=== PATIENT | female | born 2000 | race Caucasian/White ===

== ENCOUNTER 2023-08-18 17:37 | Emergency (ER) | payer OTHER, SELFPAY ==
[2023-08-18 17:41] VITALS: BP 106/64; PULSE 77; RESP 18; TEMP 36.5; O2SAT 98; BMI 20.8
[2023-08-18 18:28] VITALS: BP 98/60; PULSE 72; RESP 18; TEMP 36.7; O2SAT 98; BMI 19.4
--- NOTE | 2023-08-18 18:55 | ED_ITS ---
Documented by User: CAMILO Bahena 08/18/23 21:05 HPI - Abdominal Pain General Chief Complaint: Abdominal Pain Stated Complaint: flank, back and leg pain Time Seen by Provider: 08/18/23 18:44 Source: patient Mode of arrival: walk-in History of Present Illness HPI narrative: patient is a 23-year-old female presents the emergency department for continued pain in the right lateral abdomen, right hip radiating into the right leg. Patient states pain has been present for several weeks. She states for the last two days she has had nausea and vomiting. She states she was seen at the [facility] emergency department two days ago and they did a CT scan, x-rays and gave her morphine. She states the told her in the emergency department that everything was normal and she does not know what is causing her symptoms are how to fix it. She states pain is significantly worse with movement. She had no mechanism of injury or trauma. She has not been taking any medications at home. She is unsure if she may be . Related Data Home Medications Medication Instructions Recorded Confirmed No Known Home Medications 08/18/23 08/18/23 Previous Rx's Medication Instructions Recorded docusate sodium 100 mg capsule 100 mg PO BID #14 caps 08/18/23 (Colace) methocarbamol 750 mg tablet 750 mg PO TID PRN pain #20 tabs 08/18/23 naproxen sodium 550 mg tablet 550 mg PO BID PRN pain #10 tabs 08/18/23 Allergies Allergy/AdvReac Type Severity Reaction Status Date / Time lamictal Allergy Severe Hives Uncoded 08/18/23 17:49 Review of Systems ROS Constitutional Denies: fever or chills Ears, nose, mouth, and throat Denies: throat pain or neck pain Respiratory Denies: shortness of breath Gastrointestinal Reports: abdominal pain, nausea and vomiting; Denies: diarrhea Genitourinary Denies: painful urination Musculoskeletal Reports: back pain and extremity pain Integumentary/Breast Denies: rash Neurological Denies: headache Hematologic/Lymphatic Denies: easy bruising PFSH PFSH Social History Smoking status: Current every day smoker Exam Narrative Exam Narrative: Gen.: Awake, alert, in no distress Head: Normocephalic, atraumatic ENT: Moist mucous membranes Respiratory: No respiratory distress Gastrointestinal: Abdomen is soft, mildly tender in the right lateral and mid abdomen, no McBurney's point tenderness. No guarding or rebound Extremities: Moves extremities equally, no injuries noted; tenderness of the right posterior hip and pain with flexion of the right hip. No bony point tenderness of the posterior T-spine or L-spine. No obvious deformity. No rotation of the right leg. No decrease to sensation of the medial thighs. Normal dorsiflexion and plantarflexion. Psych: Normal mood and affect Neuro: No focal neuro deficit Skin: Warm, dry, intact Constitutional Vital Signs, click to edit/add: Last Vital Signs Temp 98.1 F 08/18/23 18:28 Pulse 72 08/18/23 21:26 Resp 18 08/18/23 18:28 BP 104/61 08/18/23 21:26 Pulse Ox 98 08/18/23 21:26 O2 Del Method Room Air 08/18/23 17:41 Course Vital Signs Vital signs: Vital Signs Temperature 97.7 F 08/18/23 17:41 Pulse Rate 77 08/18/23 17:41 Respiratory Rate 18 08/18/23 17:41 Blood Pressure 106/64 08/18/23 17:41 Pulse Oximetry 98 08/18/23 17:41 Oxygen Delivery Method Room Air 08/18/23 17:41 Temperature 98.1 F 08/18/23 18:28 Pulse Rate 72 08/18/23 21:26 Respiratory Rate 18 08/18/23 18:28 Blood Pressure 104/61 08/18/23 21:26 Pulse Oximetry 98 08/18/23 21:26 Oxygen Delivery Method Room Air 08/18/23 17:41 MDM - Abdominal Pain MDM Narrative Medical decision making narrative: labs including LFTs and test are within normal limits. Patient was sent for x-rays of the hip and pelvis. She had chest x-ray and CT scan of the abdomen and pelvis with IV contrast on 08/15/23. This showed a normal appendix and no other acute abnormalities. Chest x-ray was also negative. X-rays this evening are unremarkable, patient medicated for musculoskeletal pain. Her hip x-rays and pelvis x-ray due to show a suggestion of constipation although this was not commented on by the radiologist. Suspected her right-sided abdominal pain for several weeks may be caused by constipation. Patient will be placed on NSAIDs, muscle relaxants for hip and leg pain as well as stool softeners for constipation. Follow-up PCP and return to the Emergency Room if symptoms change or worsen patient reported feeling anxious at time of discharge, she was given 0.5 mg IV Ativan with improvement and continues to rest comfortably in the Emergency Room. Medical Records Attestation: I reviewed the patient's medical records. Lab Data Attestation: I reviewed the patient's lab results. Labs: Lab Results 08/18/23 08/18/23 Range/Units 18:35 19:00 WBC 5.5 (4.0-11.0) 10^3/uL RBC 4.23 (4.20-5.40) 10^6/uL Hgb 12.7 (12.0-16.0) g/dL Hct 37.7 (36.0-48.0) % MCV 89.1 (81.0-99.0) fL MCH 30.0 (26.7-34.0) pg MCHC 33.7 (29.9-35.2) g/dL RDW 12.1 (11.0-15.0) % Plt Count 268 (150-450) 10^3/uL MPV 9.1 L (9.5-13.5) fL Neut % (Auto) 59.7 (43.0-75.0) % Lymph % (Auto) 32.0 (20.5-60.0) % [place] % (Auto) 6.2 (1.7-12.0) % Eos % (Auto) 1.5 (0.9-7.0) % Baso % (Auto) 0.4 (0.2-2.0) % Neut # (Auto) 3.3 (1.4-6.5) 10^3/uL Lymph # (Auto) 1.8 (1.2-3.8) 10^3/uL [place] # (Auto) 0.3 (0.3-0.8) 10^3/uL Eos # (Auto) 0.1 (0.0-0.7) 10^3/uL Baso # (Auto) 0.0 (0.0-0.1) 10^3/uL Abs Immat Gran (auto) 0.01 (0.00-0.03) 10^3/uL Imm/Tot Granulo (auto) 0.2 (0.0-0.5) % Sodium 141 (136-145) mmol/L Potassium 3.9 (3.5-5.1) mmol/L Chloride 106 (98-107) mmol/L Carbon Dioxide 29.4 (21.0-32.0) mmol/L Anion Gap 9.5 BUN 12.0 (7.0-18.0) mg/dL Creatinine 0.81 (0.55-1.02) mg/dL Est GFR ( Amer) >60 (>=60) Est GFR (Non-Af Amer) >60 (>=60) BUN/Creatinine Ratio 14.8 Glucose 81 (74-106) mg/dL Calcium 8.7 (8.5-10.1) mg/dL Total Bilirubin 0.4 (0.2-1.0) mg/dL AST 14 L (15-37) U/L ALT 25 (14-59) U/L Alkaline Phosphatase 99 (46-116) U/L Total Protein 7.1 (6.4-8.2) g/dL Albumin 4.1 (3.4-5.0) g/dL Globulin 3.0 g/dL Albumin/Globulin Ratio 1.4 Serum HCG, Qual Negative (NEGATIVE) Urine Color Lt. yellow (YELLOW) Urine Clarity Clear (CLEAR) Urine pH 7.5 (5.0-9.0) Ur Specific [place] 1.010 (1.005-1.025) Urine Protein Negative (NEG/TRACE) mg/dL Urine Glucose (UA) Negative (NEGATIVE) mg/dL Urine Ketones Negative (NEGATIVE) mg/dL Urine Occult Blood Negative (NEGATIVE) Urine Nitrite Negative (NEGATIVE) Urine Bilirubin Negative (NEGATIVE) Urine Urobilinogen 0.2 (0.2-1.0) EU/dL Ur Leukocyte Esterase Trace A (NEGATIVE) Urine RBC 0-2 (0-2) #/HPF Urine WBC 0-2 A (NONE SEEN) #/HPF Ur Squamous Epith Cells Many A (NONE/RARE) #/LPF Urine Crystals None seen (None Seen) #/HPF Urine Bacteria None seen (NONE SEEN) #/HPF Urine Casts None seen (NONE SEEN) #/LPF Urine Mucus None seen (NONE SEEN) Ur Culture Indicated? No Imaging Data XR pelvis: Attestation: I have reviewed the pertinent imaging results. Radiologist's impression: Procedure: XR hip RT 2V w/ pelvis EXAM: XR hip RT 2V w/ pelvis HISTORY: Acute right hip and flank pain COMPARISON: None. TECHNIQUE: 3 views FINDINGS: No osseous lesion, fracture, dislocation or subluxation. Joint spaces are normal. No visualized effusion. No visualized soft tissue edema. IMPRESSION: Normal x-rays Electronically authenticated by: BRIAN DURÁN Date: 08/18/2023 20:36 Discharge Plan Discharge Chief Complaint: Abdominal Pain Clinical Impression: Acute pain of right hip, Abdominal pain Patient Disposition: Home, Self-Care Time of Disposition Decision: 20:54 Condition: Good Prescriptions / Home Meds: New methocarbamol 750 mg tablet 750 mg PO TID PRN (Reason: pain) Qty: 20 0RF naproxen sodium 550 mg tablet 550 mg PO BID PRN (Reason: pain) Qty: 10 0RF docusate sodium [Colace] 100 mg capsule 100 mg PO BID Qty: 14 0RF No Action No Known Home Medications Instructions: Abdominal Pain (ED), Hip Pain (ED) Stand Alone Forms: Portal Instructions Referrals: Physician,Non-Staff, [Primary Care Provider] - 1 week Discharge Date/Time: 08/18/23 21:37 Documented by User: Tobi Stone MD 08/25/23 07:44 HPI - Abdominal Pain General Chief Complaint: Abdominal Pain Stated Complaint: flank, back and leg pain Time Seen by Provider: 08/18/23 18:44 Related Data Home Medications Medication Instructions Recorded Confirmed No Known Home Medications 08/18/23 08/18/23 Previous Rx's Medication Instructions Recorded docusate sodium 100 mg capsule 100 mg PO BID #14 caps 08/18/23 (Colace) methocarbamol 750 mg tablet 750 mg PO TID PRN pain #20 tabs 08/18/23 naproxen sodium 550 mg tablet 550 mg PO BID PRN pain #10 tabs 08/18/23 Allergies Allergy/AdvReac Type Severity Reaction Status Date / Time lamictal Allergy Severe Hives Uncoded 08/18/23 17:49 PFSH PFSH Social History Smoking status: Current every day smoker Exam Constitutional Vital Signs, click to edit/add: Last Vital Signs Temp 98.1 F 08/18/23 18:28 Pulse 72 08/18/23 21:26 Resp 18 08/18/23 18:28 BP 104/61 08/18/23 21:26 Pulse Ox 98 08/18/23 21:26 O2 Del Method Room Air 08/18/23 17:41 Course Vital Signs Vital signs: Vital Signs Temperature 97.7 F 08/18/23 17:41 Pulse Rate 77 08/18/23 17:41 Respiratory Rate 18 08/18/23 17:41 Blood Pressure 106/64 08/18/23 17:41 Pulse Oximetry 98 08/18/23 17:41 Oxygen Delivery Method Room Air 08/18/23 17:41 Temperature 98.1 F 08/18/23 18:28 Pulse Rate 72 08/18/23 21:26 Respiratory Rate 18 08/18/23 18:28 Blood Pressure 104/61 08/18/23 21:26 Pulse Oximetry 98 08/18/23 21:26 Oxygen Delivery Method Room Air 08/18/23 17:41 MDM - Abdominal Pain MDM Narrative Medical decision making narrative: labs including LFTs and test are within normal limits. Patient was sent for x-rays of the hip and pelvis. She had chest x-ray and CT scan of the abdomen and pelvis with IV contrast on 08/15/23. This showed a normal appendix and no other acute abnormalities. Chest x-ray was also negative. X-rays this evening are unremarkable, patient medicated for musculoskeletal pain. Her hip x-rays and pelvis x-ray due to show a suggestion of constipation although this was not commented on by the radiologist. Suspected her right-sided abdominal pain for several weeks may be caused by constipation. Patient will be placed on NSAIDs, muscle relaxants for hip and leg pain as well as stool softeners for constipation. Follow-up PCP and return to the Emergency Room if symptoms change or worsen patient reported feeling anxious at time of discharge, she was given 0.5 mg IV Ativan with improvement and continues to rest comfortably in the Emergency Room. I, Dr Stone, have reviewed the above progress note and course of action in the ER; agree with the above. I have personally seen and evaluated this patient, gone over history and physical, and discussed disposition and treatment plan with the patient. Lab Data Labs: Lab Results 08/18/23 08/18/23 Range/Units 18:35 19:00 WBC 5.5 (4.0-11.0) 10^3/uL RBC 4.23 (4.20-5.40) 10^6/uL Hgb 12.7 (12.0-16.0) g/dL Hct 37.7 (36.0-48.0) % MCV 89.1 (81.0-99.0) fL MCH 30.0 (26.7-34.0) pg MCHC 33.7 (29.9-35.2) g/dL RDW 12.1 (11.0-15.0) % Plt Count 268 (150-450) 10^3/uL MPV 9.1 L (9.5-13.5) fL Neut % (Auto) 59.7 (43.0-75.0) % Lymph % (Auto) 32.0 (20.5-60.0) % [place] % (Auto) 6.2 (1.7-12.0) % Eos % (Auto) 1.5 (0.9-7.0) % Baso % (Auto) 0.4 (0.2-2.0) % Neut # (Auto) 3.3 (1.4-6.5) 10^3/uL Lymph # (Auto) 1.8 (1.2-3.8) 10^3/uL [place] # (Auto) 0.3 (0.3-0.8) 10^3/uL Eos # (Auto) 0.1 (0.0-0.7) 10^3/uL Baso # (Auto) 0.0 (0.0-0.1) 10^3/uL Abs Immat Gran (auto) 0.01 (0.00-0.03) 10^3/uL Imm/Tot Granulo (auto) 0.2 (0.0-0.5) % Sodium 141 (136-145) mmol/L Potassium 3.9 (3.5-5.1) mmol/L Chloride 106 (98-107) mmol/L Carbon Dioxide 29.4 (21.0-32.0) mmol/L Anion Gap 9.5 BUN 12.0 (7.0-18.0) mg/dL Creatinine 0.81 (0.55-1.02) mg/dL Est GFR ( Amer) >60 (>=60) Est GFR (Non-Af Amer) >60 (>=60) BUN/Creatinine Ratio 14.8 Glucose 81 (74-106) mg/dL Calcium 8.7 (8.5-10.1) mg/dL Total Bilirubin 0.4 (0.2-1.0) mg/dL AST 14 L (15-37) U/L ALT 25 (14-59) U/L Alkaline Phosphatase 99 (46-116) U/L Total Protein 7.1 (6.4-8.2) g/dL Albumin 4.1 (3.4-5.0) g/dL Globulin 3.0 g/dL Albumin/Globulin Ratio 1.4 Serum HCG, Qual Negative (NEGATIVE) Urine Color Lt. yellow (YELLOW) Urine Clarity Clear (CLEAR) Urine pH 7.5 (5.0-9.0) Ur Specific [place] 1.010 (1.005-1.025) Urine Protein Negative (NEG/TRACE) mg/dL Urine Glucose (UA) Negative (NEGATIVE) mg/dL Urine Ketones Negative (NEGATIVE) mg/dL Urine Occult Blood Negative (NEGATIVE) Urine Nitrite Negative (NEGATIVE) Urine Bilirubin Negative (NEGATIVE) Urine Urobilinogen 0.2 (0.2-1.0) EU/dL Ur Leukocyte Esterase Trace A (NEGATIVE) Urine RBC 0-2 (0-2) #/HPF Urine WBC 0-2 A (NONE SEEN) #/HPF Ur Squamous Epith Cells Many A (NONE/RARE) #/LPF Urine Crystals None seen (None Seen) #/HPF Urine Bacteria None seen (NONE SEEN) #/HPF Urine Casts None seen (NONE SEEN) #/LPF Urine Mucus None seen (NONE SEEN) Ur Culture Indicated? No Discharge Plan Discharge Chief Complaint: Abdominal Pain Clinical Impression: Acute pain of right hip, Abdominal pain Patient Disposition: Home, Self-Care Time of Disposition Decision: 20:54 Condition: Good Prescriptions / Home Meds: New methocarbamol 750 mg tablet 750 mg PO TID PRN (Reason: pain) Qty: 20 0RF naproxen sodium 550 mg tablet 550 mg PO BID PRN (Reason: pain) Qty: 10 0RF docusate sodium [Colace] 100 mg capsule 100 mg PO BID Qty: 14 0RF No Action No Known Home Medications Instructions: Abdominal Pain (ED), Hip Pain (ED) Stand Alone Forms: Portal Instructions Referrals: Physician,Non-Staff, MD [Primary Care Provider] - 1 week Discharge Date/Time: 08/18/23 21:37
[2023-08-18] MEDS: ONDANSETRON PF 4 MG/2 ML VIAL IV (19:07)
[2023-08-18] MEDS: 0.9 % SODIUM CHLORIDE 1,000 ML 1000 ML IV (19:07)
--- NOTE | 2023-08-18 19:23 | XR_ITS ---
[address] [address] Patient Name: JOHN SQUIRES MRN: [id number] date: 2000 Sex: F Assigned Patient Location: ER Current Patient Location: ED.MAIN Accession/Order Number: [id number] Exam Date: 08/18/2023 20:05 Report Date: 08/18/2023 20:36 At the request of: NICOLAS WILDER Procedure: XR hip RT 2V w/ pelvis EXAM: XR hip RT 2V w/ pelvis HISTORY: Acute right hip and flank pain COMPARISON: None. TECHNIQUE: 3 views FINDINGS: No osseous lesion, fracture, dislocation or subluxation. Joint spaces are normal. No visualized effusion. No visualized soft tissue edema. XR/XR hip RT 2V w/ pelvis IMPRESSION: Normal x-rays Electronically authenticated by: BRIAN DURÁN Date: 08/18/2023 20:36
[2023-08-18 19:33] LABS: Bilirubin Urine NEGATIVE (NEGATIVE); Blood Urine NEGATIVE (NEGATIVE); Clarity Urine CLEAR (CLEAR); Color Urine LT. YELLOW (YELLOW); Glucose Urine UA NEGATIVE (NEGATIVE); Ketones Urine NEGATIVE (NEGATIVE); Leukocyte Esterase Urine TRACE (NEGATIVE); Nitrite Urine NEGATIVE (NEGATIVE); Protein Urine NEGATIVE (NEG/TRACE); Urobilinogen Urine 0.2 EU/dL (0.2-1.0); pH Urine 7.5 (5.0-9.0)
[2023-08-18 19:34] LABS: Basophils Percent Auto 0.4 % (0.2-2.0); Eosinophils Absolute Auto 0.1 10^3/uL (0.0-0.7); Eosinophils Percent Auto 1.5 % (0.9-7.0); Hematocrit 37.7 % (36.0-48.0); Hemoglobin 12.7 g/dL (12.0-16.0); Immature Granulocytes Abs Auto 0.01 10^3/uL (0.00-0.03); Immature Granulocytes Pct Auto 0.2 % (0.0-0.5); Lymphocytes Absolute Auto 1.8 10^3/uL (1.2-3.8); Mean Corpuscular HGB Conc 33.7 g/dL (29.9-35.2); Mean Corpuscular Volume 89.1 fL (81.0-99.0); Mean Platelet Volume 9.1 fL (9.5-13.5); Monocytes Absolute Auto 0.3 10^3/uL (0.3-0.8); Monocytes Percent Auto 6.2 % (1.7-12.0); Neutrophils Absolute Auto 3.3 10^3/uL (1.4-6.5); Neutrophils Percent Auto 59.7 % (43.0-75.0); Platelet Count 268 10^3/uL (150-450); Red Blood Count 4.23 10^6/uL (4.20-5.40); Red Cell Distribution Width 12.1 % (11.0-15.0); White Blood Count 5.5 10^3/uL (4.0-11.0)
--- NOTE | 2023-08-18 19:41 | PC.NURSE ---
this rn taking over patient care at this time. pt states that she has had pain starting under right ribs that goes down to hip and down right leg for the last month. patient states that she went to [facility] 2 days ago and had blood work, ct scan, and x-ray done. pt was given morphine for pain but was told all her results were normal. patient states that for the last 2 days she has had n/v. denies injury. unsure if .
[2023-08-18 19:45] LABS: Urine Microscopic Indicated YES
[2023-08-18 19:45] LABS: HCG Qualitative NEGATIVE (NEGATIVE)
[2023-08-18 19:52] LABS: Bacteria Urine NONE SEEN #/HPF (NONE SEEN); Cast Seen? NONE SEEN #/LPF (NONE SEEN); Crystals Seen? None Seen #/HPF (None Seen); Mucus Urine NONE SEEN (NONE SEEN); RBC Urine 0-2 #/HPF (0-2); Squamous Epithelial Cell Urine MANY #/LPF (NONE/RARE); Urine Culture Indicated NO; WBC Urine 0-2 #/HPF (NONE SEEN)
[2023-08-18 20:03] LABS: Anion Gap 9.5; Carbon Dioxide 29.4 mmol/L (21.0-32.0); Chloride 106 mmol/L (98-107); Glucose 81 mg/dL (74-106); Potassium 3.9 mmol/L (3.5-5.1); Sodium 141 mmol/L (136-145)
[2023-08-18 20:04] LABS: Alanine Aminotransferase 25 U/L (14-59); Albumin Globulin Ratio 1.4; Albumin Level 4.1 g/dL (3.4-5.0); Alkaline Phosphatase 99 U/L (46-116); Aspartate Amino Transferase 14 U/L (15-37); Bilirubin Total 0.4 mg/dL (0.2-1.0); Calcium 8.7 mg/dL (8.5-10.1); Estimated GFR (African America >60 (>=60); Estimated GFR (Non-African Ame >60 (>=60); Total Protein 7.1 g/dL (6.4-8.2)
[2023-08-18 20:06] LABS: BUN Creatinine Ratio 14.8
[2023-08-18 20:35] VITALS: BP 92/62; PULSE 68; O2SAT 99
[2023-08-18] MEDS: ORPHENADRINE 60 MG/ 2 ML VIAL IV (20:37)
[2023-08-18] MEDS: KETOROLAC TROMETHAMINE 30 MG/ML VIAL IVP (20:37)
[2023-08-18] MEDS: LORAZEPAM 2 MG/ML 1 ML VIAL 0.5 MG IV (21:09)
[2023-08-18 21:26] VITALS: BP 104/61; PULSE 72; O2SAT 98
== END 2023-08-18 21:37 | disposition home or self-care (01) ==
PROVIDERS: Emergency Medicine; Physician Assistant; Emergency Provider Internal Medicine
DX: R10.9 Unspecified abdominal pain (principal); M25.551 Pain in right hip; F17.210 Nicotine dependence, cigarettes, uncomplicated
CPT/HCPCS: 36415; 73502; 80053; 81001; 84703; 85025; 96361; 96374; 96375; 99285

== ENCOUNTER 2025-04-06 04:14 | Emergency (ER) | payer OTHER, SELFPAY ==
[2025-04-06 04:11] VITALS: BP 103/73; PULSE 77; TEMP 37.1; O2SAT 98; BMI 20.1
--- NOTE | 2025-04-06 04:22 | ECG_ITS ---
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 Measurements Intervals [place] Rate: 83 P: 61 [place]: 142 QRS: 69 QRSD: 96 T: 40 QT: 384 QTc: 424 Interpretive Statements 1100 Sinus rhythm 9110 normal ECG Compared to ECG 06/12/2020 21:55:18 Sinus tachycardia no longer present ST (T wave) deviation no longer present Electronically Signed On 04-06-2025 21:43:33 EDT by GUICHO RUIZ M.D.
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
[2025-04-06 05:06] LABS: Basophils Percent Auto 0.3 % (0.2-2.0); Eosinophils Absolute Auto 0.1 10^3/uL (0.0-0.7); Hematocrit 40.6 % (36.0-48.0); Hemoglobin 13.9 g/dL (12.0-16.0); Immature Granulocytes Abs Auto 0.03 10^3/uL (0.00-0.03); Immature Granulocytes Pct Auto 0.3 % (0.0-0.5); Lymphocytes Absolute Auto 3.9 10^3/uL (1.2-3.8); Lymphocytes Percent Auto 37.5 % (20.5-60.0); Mean Corpuscular HGB Conc 34.2 g/dL (29.9-35.2); Mean Corpuscular Hemoglobin 30.9 pg (26.7-34.0); Mean Corpuscular Volume 90.2 fL (81.0-99.0); Monocytes Absolute Auto 0.5 10^3/uL (0.3-0.8); Monocytes Percent Auto 4.7 % (1.7-12.0); Neutrophils Absolute Auto 5.9 10^3/uL (1.4-6.5); Neutrophils Percent Auto 56.2 % (43.0-75.0); Platelet Count 291 10^3/uL (150-450); White Blood Count 10.5 10^3/uL (4.0-11.0)
--- NOTE | 2025-04-06 05:10 | PC.NURSE ---
Initially, pt did deny suicidal thoughts, plan, and ideation. After the MD in to speak with her, pt confided that she is indeed feeling suicidal. She denies feeling homicidal, denies having a plan. She states that she would just kill herself suddenly if she truly means to. She reports a hx of suicidal thoughts and ideation, and was hospitalized approximately 2 times for this with the last time in 2022. She states a hx of psychotic depression and anxiety for which she claims to have sought no further treatment for over 2 years. She denies taking psych meds and other meds. States that she drank 4 Ledesma Lights tonight, and believes ETOH consumption makes the auditory hallucinations less. Breath does smell of ETOH.
[2025-04-06 05:14] LABS: HCG Qualitative Urine* NEGATIVE (NEGATIVE); Internal Control Within Normal Limits
[2025-04-06 05:15] LABS: Bilirubin Urine NEGATIVE (NEGATIVE); Clarity Urine CLEAR (CLEAR); Color Urine YELLOW (YELLOW); Glucose Urine UA NEGATIVE (NEGATIVE); Ketones Urine 15 mg/dL (NEGATIVE); Protein Urine NEGATIVE (NEG/TRACE)
[2025-04-06 05:16] LABS: Blood Urine NEGATIVE (NEGATIVE); Leukocyte Esterase Urine NEGATIVE (NEGATIVE); Nitrite Urine NEGATIVE (NEGATIVE); Urobilinogen Urine 0.2 EU/dL (0.2-1.0)
[2025-04-06 05:17] LABS: Amphetamine Screen Urine NEGATIVE (NEGATIVE); Barbiturates Screen Urine NEGATIVE (NEGATIVE); Benzodiazepines Screen Urine NEGATIVE (NEGATIVE); Buprenorphine Screen Urine NEGATIVE (NEGATIVE); Cannabinoid Screen Urine NEGATIVE (NEGATIVE); Cocaine Screen Urine NEGATIVE (NEGATIVE); Methadone Screen Urine NEGATIVE (NEGATIVE); Methamphetamines Screen Urine NEGATIVE (NEGATIVE); Opiate Screen Urine NEGATIVE (NEGATIVE); Oxycodone Screen Urine NEGATIVE (NEGATIVE); Phencyclidine Screen Urine NEGATIVE (NEGATIVE); Tricyclic Antidepressant Urine NEGATIVE (NEGATIVE)
--- NOTE | 2025-04-06 05:18 | PC.NURSE ---
Pt states that she's been feeling anxious and hearing voices for about a month and reports that she is in the process of getting . States that she has 2 small children at home and they are with her mother at this time.
[2025-04-06 05:19] LABS: Bacteria Urine NONE SEEN #/HPF (NONE SEEN); Mucus Urine NONE SEEN (NONE SEEN); RBC Urine NONE SEEN #/HPF (0-2); WBC Urine NONE SEEN #/HPF (NONE SEEN)
[2025-04-06 05:20] LABS: Cast Seen? NONE SEEN #/LPF (NONE SEEN); Crystals Seen? None Seen #/HPF (None Seen); Squamous Epithelial Cell Urine RARE #/LPF (NONE/RARE); Urine Culture Indicated NO
[2025-04-06 05:34] LABS: Alanine Aminotransferase 24 U/L (14-59); Albumin Globulin Ratio 1.2; Albumin Level 4.1 g/dL (3.4-5.0); Alkaline Phosphatase 78 U/L (46-116); Anion Gap 14.3; Aspartate Amino Transferase 13 U/L (15-37); BUN Creatinine Ratio 18.5; Bilirubin Total 0.2 mg/dL (0.2-1.0); Calcium 8.9 mg/dL (8.5-10.1); Carbon Dioxide 26.6 mmol/L (21.0-32.0); Chloride 107 mmol/L (98-107); Estimated GFR (African America >60 (>=60 mL/min/1.73m^2); Estimated GFR (Non-African Ame >60 (>=60 mL/min/1.73m^2); Globulin 3.3 g/dL; Glucose 89 mg/dL (74-106); Potassium 3.9 mmol/L (3.5-5.1); Sodium 144 mmol/L (136-145); Total Protein 7.4 g/dL (6.4-8.2)
[2025-04-06 05:37] LABS: Acetaminophen <2.0 ug/mL (10.0-30.0)
[2025-04-06 06:17] VITALS: BP 102/60; PULSE 74; O2SAT 98
[2025-04-06 06:29] LABS: Ethanol 169 mg/dL
--- NOTE | 2025-04-06 07:31 | PC.NURSE ---
Spoke with Nia from [facility] and she will have counselor call and speak with patient when she is available. Face sheet, EKG, and lab worked faxed to [facility].
--- NOTE | 2025-04-06 08:43 | PC.NURSE ---
Patient speaking with [facility] counselor via teleconference at this time.
[2025-04-06 10:06] LABS: Ethanol 22 mg/dL
--- NOTE | 2025-04-06 11:00 | PC.NURSE ---
[facility] here at this time for transport.
== END 2025-04-06 11:04 ==
PROVIDERS: Emergency Medicine; Emergency Provider Emergency Medicine
DX: F23 Brief psychotic disorder (principal); F32.9 Major depressive disorder, single episode, unspecified; F17.200 Nicotine dependence, unspecified, uncomplicated; F41.9 Anxiety disorder, unspecified; F32.A Depression, unspecified
CPT/HCPCS: 36415; 80053; 80179; 80307; 80320; 80329; 81001; 84703; 85025; 93005; 99285

== ENCOUNTER 2025-09-13 13:08 | Outpatient (RCR) | payer OTHER, SELFPAY ==
--- OUTSIDE RECORDS SUMMARY | 2025-08-31 09:38 | XMS_ITS | Encounter Summary ---
Author Organization [facility] tem Address [facility] [address] [place] [address] Care Team Providers Care Receiving Teller Name Role Phone No Pcp, No Pcp Primary Care Provider Unavailabl e Reason for Visit * ReasonCommentsAbdominal Pain Encounter Details DateTypeDepartmentCare Team (Latest Contact Info)Hfywpzbnyem94/15/2025 9:38 AM EDT - 08/31/2025 2:08 [address] [facility] [address] [place] [phone] ObKeshav ponce S, DO [address] [phone] Abnormal ultrasound (Primary Dx); Right sided abdominal pain; Intrauterine Discharge Disposition: Home Social History Tobacco UseTypesPacks/DayYears UsedDateSmoking Tobacco: Every DayCigarettes Smokeless Tobacco: NeverAlcohol UseStandard Drinks/WeekCommentsNot Currently0 (1 standard drink = 0.6 oz pure alcohol)occasionallyChildcareAnswerDate Recorded SqnnljpylKrulbys75/12/2019EmploymentAnswerDate RecordedEmploymentUnknown 04/28/2019Hunger ScreeningAnswerDate RecordedWithin the past 12 months we worried whether our food would run out before we got money to buy more.Never True08/31/2025Within the past 12 months the food we bought just didn't last and we didn't have money to get more.Never True08/31/2025Purpose - LifeAnswerDate RecordedPurpose and direction in pjneMpqsncd00/08/2021CommentsYesSex and Gender InformationValueDate RecordedSex Assigned at BirthNot on fileLegal Sex Zafenx5906/22/2015 11:54 AM EDTGender IdentityNot on fileSexual OrientationNot on filedocumented as of this encounter Last Filed Vital Signs Vital SignReadingTime TakenCommentsBlood Yjwujzxw98/4410 2:05 PM EDT Sprkz124208/31/2025 2:05 PM PFFLbnzsjjzaiu76.6 ??C (97.9 ??F)08/31/2025 9:41 AM EDTRespiratory Twpl4334 2:05 PM EDTOxygen Yzjkjuxjsg932%08/31/2025 2:05 PM EDTInhaled Oxygen Concentration--Nvcmop96.6 kg (105 lb)08/31/2025 9:41 AM EDT Htjnrg413.8 cm (4' 9 )08/31/2025 9:41 AM EDTBody Mass Index22.7208/31/2025 9:41 AM EDTdocumented in this encounter Discharge Instructions * Discharge Instructions* Keshav Mena DO - 08/31/2025 2:01 PM EDT Be sure to proceed to an outpatient lab to have your serum hormone redrawn. Be sure to reach out to * Attachments The following attachments cannot be sent through Care Everywhere. * Medication (Norwegian) documented in this encounter Medications at Time of Discharge MedicationSigDispense QuantityRefillsLast FilledStart DateEnd Date acetaminophen (TYLENOL EXTRA STRENGTH) 500 mg tablet Take 1 tablet (500 mg total) by mouth every 6 (six) hours as needed for pain. 30 tablet 04/09/2022 doxylamine-pyridoxine, vit B6, (DICLEGIS) 10-10 mg tablet,delayed release (DR/EC) Take 2 tablets by mouth nightly. 21 tablet 07/31/2022 ondansetron ODT (ZOFRAN ODT) 4 mg disintegrating tablet Dissolve 1 tablet (4 mg total) on tongue every 8 (eight) hours as needed for nausea for up to 10 doses. 10 tablet 07/31/2022 ondansetron ODT (ZOFRAN ODT) 4 mg disintegrating tablet Dissolve 1 tablet (4 mg total) on tongue 3 (three) times a day as needed for nausea for up to 3 doses. 3 tablet 12/21/2024 prenat.vits,jluis,rew-awkq-hlxku ( VITAMIN) tablet Take by mouth.documented as of this encounter ED Notes * Siena Trujillo RN - 08/31/2025 9:40 AM EDT 3 days has been having stomach pains on the LRQ and it goes into back and down legs. Had a positivepregnancy test at home. documented in this encounter Plan of Treatment NameTypePriorityAssociated DiagnosesOrder SchedulehCG, quantitative, LabSTAT Abnormal ultrasound Expected: 09/03/2025, Expires: 08/31/2026documented as of this encounter Procedures Procedure NamePriorityDate/TimeAssociated DiagnosisCommentsUS ABDOMEN LMTDSTAT 08/31/2025 1:13 PM EDT US PREG LESS THAN 14 WKS WITH QMZGIXLQPDNBBWMO71/15/2025 11:40 AM EDT REPEATED JPIJTVafbrqs55/15/2025 11:20 AM EDT CBC WITH AUTO XOARDQJCRDTGHIJP90/15/2025 11:20 AM EDT LJZBNMDZ03/15/2025 11:20 AM EDT PROTIME & JMFBNTW7008/31/2025 11:20 AM EDT TYPE AND HMGEQJJERN91/15/2025 11:20 AM EDT HCG-BETA, NQGFNNXLR84/15/2025 11:20 AM EDT LIPASESTAT Add-on08/31/2025 11:20 AM EDT LIVER PANELSTAT Add-on08/31/2025 11:20 AM EDT BASIC METABOLIC ATOTHLQWN85/15/2025 11:20 AM EDT POCT , URINE (NUCG)Sbmosbc4208/31/2025 10:56 AM EDT POCT NURSING URINE MACROSCOPIC QNYkjowec00/15/2025 10:55 AM EDT ER EXTRA URINE JLUMVCVOQV33/15/2025 10:53 AM EDT ER EXTRA URINE DKBBASFYALM99/15/2025 10:53 AM EDT ER EXTRA BIKZLVCZU46/15/2025 10:53 AM EDT documented in this encounter Results * Ultrasound abdomen limited (08/31/2025 1:13 PM EDT)Anatomical RegionLaterality ModalityBody, AbdomenUltrasoundSpecimen (Source)Anatomical Location / LateralityCollection Method / VolumeCollection TimeReceived Time08/31/2025 1:16 PM EDT Narrative 08/31/2025 1:19 PM EDT Abdominal ultrasound dated 08/31/2025 at 1:02 PM INDICATION: Right-sided abdominal pain, loss of appetite, . FINDINGS: No comparisons available. Visualized portions of the pancreas show no focal abnormalities. No acute abnormality seen in the liver. No intra or extrahepatic biliary dilatation, the common bile duct measures 6 mm. No. Subtle pericholecystic fluid, the gallbladder wall measures 1.3 mm. Patent main portal vein with hepatopedal flow. Ultrasound of the right lower quadrant revealed bowel gas without fluid collections, the appendix is not visualized. IMPRESSION: 1. The appendix is not visualized on ultrasound. 2. No free fluid seen in the abdomen. 3. No gallstones, pericholecystic fluid, or biliary dilatation. Finalized by Serene Hanks MD on 08/31/2025 1:19 PM Procedure Note Serene Hanks MD - 08/31/2025 Abdominal ultrasound dated 08/31/2025 at 1:02 PM INDICATION: Right-sided abdominal pain, loss of appetite, . FINDINGS: No comparisons available. Visualized portions of the pancreasshow no focal abnormalities. No acute abnormality seen in the liver. Nointra or extrahepatic biliary dilatation, the common bile duct measures 6mm. No. Subtle pericholecystic fluid, the gallbladder wall measures 1.3mm. Patent main portal vein with hepatopedal flow. Ultrasound of the right lowerquadrant revealed bowel gas without fluid collections, the appendix is notvisualized. IMPRESSION: 1. The appendix is not visualized on ultrasound. 2. No free fluid seen in the abdomen. 3. No gallstones, pericholecystic fluid, or biliary dilatation. Finalized by Serene Hanks MD on 08/31/2025 1:19 PM Authorizing ProviderResult TypeResult StatusBrchuckie Mena [facility] US ORDERABLES Final Result * Ultrasound less than 14 weeks with transvaginal (08/31/2025 11:40 AM EDT)Anatomical RegionLateralityModalityOB-GYNUltrasoundSpecimen (Source) Anatomical Location / LateralityCollection Method / VolumeCollection Time Received Time08/31/2025 11:52 AM EDT Narrative 08/31/2025 11:58 AM EDT History: Right lower quadrant pain.]. Assess for ectopic . Procedure: US PREG LESS THAN 14 WKS WITH TRANSVAGINAL Real-time suprapubic and transvaginal pelvic ultrasound performed without complication. Transvaginal technique employed to improve visualization of the adnexa. Findings: Suprapubic approach: Uterus and adnexa not optimally visualized. Transvaginal approach: Gestational sac shape appropriate, placenta difficult to localize due to age, amniotic fluid volumeappropriate for age Right ovary 23 x 20 x 23 mm Left ovary 23 x 17 x 12 mm Appropriate gestational sac. Yolk sac demonstrated measuring 3.7 mm. Brewer-rump 0.19 cm corresponding to a gestational age of less than 5 weeks heart rate is low at 88 bpm The uterus demonstrates appropriate size and echo pattern. The ovaries demonstrate appropriate size and echo pattern. There are no adnexal masses or free fluid. Impression: * ??Single live intrauterine gestation less than 5 weeks age. * ?? heart rate is low at 88 bpm. I recommend pelvic ultrasound in 7 days to more accurately determine gestational age and further characterize heart rate. Finalized by Mateusz Gomez MD on 08/31/2025 11:58 AM Procedure Note Mateusz Gomez MD - 08/31/2025 History: Right lower quadrant pain.]. Assess for ectopic . Procedure: US PREG LESS THAN 14 WKS WITH TRANSVAGINAL Real-time suprapubic and transvaginal pelvic ultrasound performed without complication. Transvaginal technique employed to improve visualization ofthe adnexa. Findings: Suprapubic approach: Uterus and adnexa not optimally visualized. Transvaginal approach: Gestational sac shape appropriate, placenta difficult to localize due toage, amniotic fluid volume appropriate for age Right ovary 23 x 20 x 23 mm Left ovary 23 x 17 x 12 mm Appropriate gestational sac. Yolk sac demonstrated measuring 3.7 mm.Brewer-rump 0.19 cm corresponding to a gestational age of less than 5weeks heart rate is low at 88 bpm The uterus demonstrates appropriate size and echo pattern. The ovaries demonstrate appropriate size and echo pattern. There are no adnexal masses or free fluid. Impression: * Single live intrauterine gestation less than 5 weeks age. * heart rate is low at 88 bpm. I recommend pelvic ultrasound in 7days to more accurately determine gestational age and further characterizefetal heart rate. Finalized by Mateusz Gomez MD on 08/31/2025 11:58 AM Authorizing ProviderResult TypeResult StatusBrian S Obrycki [facility] US ORDERABLES Final Result * Lipase (08/31/2025 11:20 AM EDT)ComponentValueRef RangeTest MethodAnalysis TimePerformed AtPathologist OmzjicuusQSMYTH9761 - 40 U/L1 1:23 PM EDT [facility] (Source)Anatomical Location / LateralityCollection Method / VolumeCollection TimeReceived TimeBloodVenous blood / UnknownVenipuncture / Oweidff9708/31/2025 11:20 AM EDT1 11:30 AM EDT Narrative Authorizing ProviderResult TypeResult StatusBrnemours children's hospital, [place] S Obryck DOLAB BLOOD ORDERABLESFinal ResultPerforming OrganizationAddressCity/State/ZIP CodePhone Number [address] [place] [address], * Liver panel (08/31/2025 11:20 AM EDT)ComponentValueRef RangeTest Method Analysis TimePerformed AtPathologist SignatureTOTAL PROTEIN7.56.0 - 8.0 g/dL 08/31/2025 1:23 PM EDTPZANESVILLE CITY HOSPITALALBUMIN4.63.2 - 5.3 g/dL08/31/2025 1:23 PM EDTPZANESVILLE CITY HOSPITALBILIRUBIN,TOTAL 0.80.3 - 1.2 mg/dL08/31/2025 1:23 PM [facility] ALKALINE PVVGEOHNTEG0438 - 130 U/L1 1:23 PM EDKETTERING HEALTH WASHINGTON TOWNSHIPAST16<=41 U/L1 1:23 PM EDTPZANESVILLE CITY HOSPITALALT17<=31 U/L1 1:23 PM [facility] BILIRUBIN,DIRECT0.1<=0.4 mg/dL08/31/2025 1:[address] [facility] HOSPITALpecimen (Source)Anatomical Location / LateralityCollection Method / VolumeCollection TimeReceived TimeBloodVenous blood / UnknownVenipuncture / Lrxjpse7708/31/2025 11:20 AM EDT1 11:30 AM EDT Narrative Authorizing ProviderResult TypeResult StatusBrian S Obrycki DOLAB BLOOD ORDERABLESFinal ResultPerforming OrganizationAddressCity/State/ZIP CodePhone Number [facility] [address] [place] [address] [place] [address], [place] * ABO Rh Repeat (08/31/2025 11:20 AM EDT)ComponentValueRef RangeTest Method Analysis TimePerformed AtPathologist OlissivakVYCV87/15/2025 12:36 PM EDTFRE KRYSTIAN - EFOXLQOSTKtwzkiuu64/15/2025 12:36 PM EDTFRE BB - AWASpecimen (Source) Anatomical Location / LateralityCollection Method / VolumeCollection Time Received TimeBloodVenous blood / UnknownVenipuncture / Hahrild1808/31/2025 11:20 AM EDT1 11:30 AM EDT Narrative Authorizing ProviderResult TypeResult StatusBrian S Obrycki DOBLOOD BANK TEST ORDERABLESFinal ResultPerforming OrganizationAddressCity/State/[facility] CodePhone Number OSWALDO BILLINGS [address] [address], [place] * HCG, Quantitative, (08/31/2025 11:20 AM EDT)ComponentValueRef Range Test MethodAnalysis TimePerformed AtPathologist SignatureSERUM B HCG,3RD I.S. 33,871mIU/mL08/31/2025 12:42 PM EDTPROMEDICA MERCY SAN [facility]UAN MEDICAL CENTERpecimen (Source)Anatomical Location / LateralityCollection Method / VolumeCollection TimeReceived TimeBloodVenous blood / UnknownVenipuncture / Jdooxpm8108/31/2025 11:20 AM EDT1 11:30 AM EDT Narrative [facility] - 08/31/2025 12:42 PM EDT WEEKS (SINCE LMP) MIU/mL 3 WEEKS ?5 - 50 4 WEEKS ?5 - 426 5 WEEKS ?18 - 7,340 6 WEEKS ?1,080 - 56,500 7-8 WEEKS ?7,650 - 229,000 9-12 WEEKS ? 25,700 - 288,000 13-16 WEEKS ?13,300 - 254,000 17-24 WEEKS ?4,060 - 165,400 25-40 WEEKS ?3,640 - 117,000 MALES AND NON- FEMALES - <5 MIU/mL This test has been FDA approved for use in only. ??Elevated levels are not necessarily diagnostic for trophoblastic or nontrophoblastic neoplasms. Authorizing ProviderResult TypeResult StatusKeshav Mena DOLAB BLOOD ORDERABLESFinal ResultPerforming OrganizationAddressty/[facility] CodePhone Number [facility] [address] [place] [address], [place] * Type and screen(includes indirect scooby) (08/31/2025 11:20 AM EDT)Component ValueRef RangeTest MethodAnalysis TimePerformed AtPathologist SignatureABOO 08/31/2025 12:21 PM EDTFRE BB - HMIJIVQXETzjqsimj14/15/2025 12:21 PM EDTFRE BB - WELLSKYAntibody OwzqyfMknnvvac88/15/2025 12:21 PM EDTFRE BB - WELLSKY Specimen (Source)Anatomical Location / LateralityCollection Method / Volume Collection TimeReceived TimeBloodVenous blood / UnknownVenipuncture / Unknown 08/31/2025 11:20 AM EDT1 11:30 AM EDT Narrative Authorizing ProviderResult TypeResult Tato Mena DOBLOOD BANK TEST ORDERABLESEdited Result - FinalPerforming OrganizationAddressty/State/ZIP Code Phone Number OSWALDO BILLINGS [address] [place] [address], [place] * APTT (08/31/2025 11:20 AM EDT)ComponentValueRef RangeTest MethodAnalysis Time Performed AtPathologist OurezasvkZRGN1448 - 37 sec08/31/2025 11:44 AM EDT [facility] (Source)Anatomical Location / LateralityCollection Method / VolumeCollection TimeReceived TimeBloodVenous blood / UnknownVenipuncture / Pyojivl4708/31/2025 11:20 AM EDT1 11:30 AM EDT Narrative Authorizing ProviderResult TypeResult StatusBrian S Obrycki DOLAB BLOOD ORDERABLESFinal ResultPerforming OrganizationAddressCity/State/ZIP CodePhone Number [address] [place] [address], [place] * Protime & INR (08/31/2025 11:20 AM EDT)ComponentValueRef RangeTest Method Analysis TimePerformed AtPathologist QxzruggxpVZVJOLQ95.19.8 - 13.2 sec 08/31/2025 11:44 AM EDKETTERING HEALTH WASHINGTON TOWNSHIPINR1.00.9 - 1.2 08/31/2025 11:44 AM EDW[facility] (Source) Anatomical Location / LateralityCollection Method / VolumeCollection Time Received TimeBloodVenous blood / UnknownVenipuncture / Ihwlpnw9408/31/2025 11:20 AM EDT1 11:30 AM EDT Narrative Authorizing ProviderResult TypeResult StatusBrian S Obrycki DOLAB BLOOD ORDERABLESFinal ResultPerforming OrganizationAddressty/State/ZIP CodePhone Number [address] [place] [address], [place] * (ABNORMAL) Basic Metabolic Panel (08/31/2025 11:20 AM EDT)ComponentValueRef RangeTest MethodAnalysis TimePerformed AtPathologist MtphuroxdKKHSOA164911 - 146 mmol/L1 12:07 PM EDTPZANESVILLE CITY HOSPITALPOTASSIUM 3.4(L)3.5 - 5.0 mmol/L1 12:07 PM EDTPZANESVILLE CITY HOSPITALCHLORIDE9998 - 109 mmol/L1 12:07 PM [facility]CARB[facility] BQGOPXO3894 - 32 mmol/L1 12:07 PM EDT [facility]ITALANION VGB985 - 15 mmol/L1 12:07 PM [facility]ICBLOOD UREA ZONJLEEF30 - 23 mg/dL 08/31/2025 12:07 PM [facility]ICCREATININE0.580.40 - 1.00 mg/dL08/31/2025 12:07 PM [facility]ICComment: METHOD TRACEABLE TO IDMS OOMLSMQOTNTQRYZ9048 - 99 mg/dL08/31/2025 12:07 PM EDT [facility] HOSPITALCALCIUM9.28.5 - 10.5 mg/dL08/31/2025 12:07 PM [facility]ICEGFR Non-Race Dependent>90>=60 ml/min/1.73sq.m1 12:07 PM [facility] Comment: eGFR not reported due to non-numeric value for Creatinine. Reported eGFR is based on the CKD-EPI 2020 equation that does not use a race coefficient. Specimen (Source)Anatomical Location / LateralityCollection Method / Volume Collection TimeReceived TimeBloodVenous blood / UnknownVenipuncture / Unknown 08/31/2025 11:20 AM EDT1 11:30 AM EDT Narrative Authorizing ProviderResult TypeResult StatusBrian Kingsley Mena [facility] BLOOD ORDERABLESFinal ResultPerforming OrganizationAddressCity/State/ZIP CodePhone Number [facility] [address] [place] [address], * CBC auto differential (08/31/2025 11:20 AM EDT)ComponentValueRef RangeTest MethodAnalysis TimePerformed AtPathologist SignatureWBC6.94 - 11 x10E9/L 08/31/2025 11:34 AM [facility]ICRBC Count4.303.8 - 5.2 X10E12/L1 11:34 AM [facility] Avnbwokgux31.111.7 - 15.5 g/dL08/31/2025 11:34 AM EDKETTERING HEALTH WASHINGTON TOWNSHIPHematocrit37.435 - 47 %08/31/2025 11:34 AM EDKETTERING HEALTH WASHINGTON TOWNSHIPMCV8780 - 100 fL08/31/2025 11:34 AM [facility]ICMCH30.427 - 34 pg08/31/2025 11:34 AM EDKETTERING HEALTH WASHINGTON TOWNSHIPMCHC34.932 - 36 g/dL08/31/2025 11:34 AM EDKETTERING HEALTH WASHINGTON TOWNSHIPRDW12.811.5 - 15 %08/31/2025 11:34 AM [facility]ICPlatelet Fpims301688 - 450 X10E9/L1 11:34 AM EDKETTERING HEALTH WASHINGTON TOWNSHIPMPV7.27 - 12 fL08/31/2025 11:34 AM EDT [facility]OS[facility]ITALNeutrophils %70.2%08/31/2025 11:34 AM EDT [facility]OS[facility]ITALLymphocytes %23.3%08/31/2025 11:34 AM EDT [facility]OSPITALMonocytes %5.0%08/31/2025 11:34 AM EDT [facility] HOSPITALEosinophils %1.2%08/31/2025 11:34 AM EDT [facility]ITALBasophils %0.3%08/31/2025 11:34 AM EDT [facility] HOS[facility]ITALNeutrophils Absolute (A)4.81.5 - 6.6 10*3/uL08/31/2025 11:34 AM EDTPZANESVILLE CITY HOSPITALLymphocytes Absolute1.61.0 - 3.5 10*3/uL08/31/2025 11:34 AM EDTPZANESVILLE CITY HOSPITALMonocytes Absolute0.30.0 - 0.9 10*3/uL08/31/2025 11:34 AM EDTPROMEDICA FREMONT [facility]IAL HOSPITALEosinophils Absolute0.10.0 - 0.4 10*3/uL08/31/2025 11:34 AM [facility]Basophils Absolute0.00.0 - 0.2 10*3/uL08/31/2025 11:34 AM [facility]ICDifferential TypeAUTOMATED HUOGVNIHFLDY82/15/2025 11:34 AM [facility] (Source)Anatomical Location / LateralityCollection Method / VolumeCollection TimeReceived TimeBloodVenous blood / UnknownVenipuncture / Onhketd8008/31/2025 11:20 AM EDT1 11:30 AM EDT Narrative Authorizing ProviderResult TypeResult Statuschuckie [facility]ann[facility] DOLAB BLOOD ORDERABLESFinal ResultPerforming OrganizationAddressCity/State/[facility] CodePhone Number [address] [place] [address], [place] * (ABNORMAL) POCT , urine (08/31/2025 10:56 AM EDT)ComponentValueRef RangeTest MethodAnalysis TimePerformed AtPathologist SignaturePOC Urine PregnancyPositive(A)Negative, Dhzjfwfhkfkha99/15/2025 10:58 AM [facility] (Source)Anatomical Location / Laterality Collection Method / VolumeCollection TimeReceived NucvLohru71/15/2025 10:56 AM EDT1 10:58 AM EDT Narrative Authorizing ProviderResult TypeResult [facility] HospitalKeshav Mena DOPOINT OF CARE TEST ORDERABLESFinal ResultPerforming OrganizationAddressty/State/ZIP CodePhone Number [address] [place] [address], [place] * (ABNORMAL) POCT Nursing Urine Macroscopic UA (08/31/2025 10:55 AM EDT) ComponentValueRef RangeTest MethodAnalysis TimePerformed AtPathologist SignaturePOC Urine Specific Gravity1.0101.010, 1.015, 1.020, 1.7461208/31/2025 10:56 AM [facility] Urine Leukocyte Esterase FoxtsibvInpuykcv60/15/2025 10:56 AM [facility] Urine TcxyucqDdmagtqwZolnrqdx38/15/2025 10:56 AM [facility] Urine pH7.05.0, 6.0, 6.5, 7.0, 7.5, 8.0, 8.5, 5. 10:56 AM [facility] Urine ProteinNegativeNegative 08/31/2025 10:56 AM [facility] Urine Glucose IroqzyhxFykyubrh88/15/2025 10:56 AM [facility] Urine Ydfbtyw91 mg/dL(A)Nlwcejha69/15/2025 10:56 AM [facility] Urine Urobilinogen0.2 E.U./dL08/31/2025 10:56 AM EDT [facility] Urine BilirubinNegativeNegative 08/31/2025 10:56 AM [facility] Urine Blood/HGB Trace(A)Zdlcsaqg25/15/2025 10:56 AM [facility] Specimen (Source)Anatomical Location / LateralityCollection Method / Volume Collection TimeReceived WefhPvnir42/15/2025 10:55 AM EDT1 10:56 AM EDT Narrative Authorizing ProviderResult TypeResult StatusBrian S Obrycki DOPOINT OF CARE TEST ORDERABLESFinal ResultPerforming OrganizationAddressCity/State/ZIP CodePhone Number [facility] [address] [place] [address], * Extra Urine Fowler (08/31/2025 10:53 AM EDT)ComponentValueRef RangeTest Method Analysis TimePerformed AtPathologist SignatureExtra TubeAuto Resulted 08/31/2025 12:02 PM [facility]pec[facility] (Source) Anatomical Location / LateralityCollection Method / VolumeCollection Time Received TimeUrineUrine specimen collection, clean catch / Rjiwekn1408/31/2025 10:53 AM EDT10/ 11:31 AM EDT Narrative Authorizing ProviderResult TypeResult StatusBrian S Obrycki DOURINE ORDERABLES Final ResultPerforming OrganizationAddressCity/State/ZIP CodePhone Number [address] [place] [address], [place] * Extra Urine Culture (08/31/2025 10:53 AM EDT)ComponentValueRef RangeTest MethodAnalysis TimePerformed AtPathologist SignatureExtra TubeAuto Resulted 08/31/2025 12:02 PM [facility] (Source) Anatomical Location / LateralityCollection Method / VolumeCollection Time Received TimeUrineUrine specimen collection, clean catch / Qmkjxbv4108/31/2025 10:53 AM EDT1 11:31 AM EDT Narrative Authorizing ProviderResult TypeResult StatusBrian S Obrycki DOURINE ORDERABLES Final ResultPerforming OrganizationAddressty/State/ZIP CodePhone Number [address] [place] [address], [place] * Extra Urine (08/31/2025 10:53 AM EDT)ComponentValueRef RangeTest Method Analysis TimePerformed AtPathologist SignatureExtra TubeAuto Resulted 08/31/2025 12:02 PM [facility] (Source) Anatomical Location / LateralityCollection Method / VolumeCollection Time Received TimeUrineUrine specimen collection, clean catch / Cbckbem8608/31/2025 10:53 AM EDT1 11:30 AM EDT Narrative Authorizing ProviderResult TypeResult StatusBrian S Obrycki DOURINE ORDERABLES Final ResultPerforming OrganizationAddChildren's Hospital of Philadelphiaty/State/ZIP CodePhone Number [address] [place] [address], [place] documented in this encounter Visit Diagnoses Diagnosis Abnormal ultrasound- Primary Right sided abdominal pain Abdominal pain, unspecified site Intrauterine documented in this encounter Care Teams Team MemberRelationshipSpecialtyStart DateEnd Date No P[place] [address] PCP - GeneralFamily Medicine12/21/24documented as of this encounter
--- OUTSIDE RECORDS SUMMARY | 2025-09-12 11:30 | XMS_ITS | Encounter Summary ---
Author Organization [facility] Address [address] [place] [address] Care Team Providers Care Natural Resources Extension Educator Name Role Phone Unallocated, Noms Provider Primary Care Provi manasa Reason for Visit * ReasonCommentsConsultDiscuss current options Encounter Details DateTypeDepartmentCare Team (Latest Contact Info)Zsqxavfbrwj48/27/2025 11:30 AM EDTOffice Visit ERIKA Ramon OBDEBBIE [address] [place] [phone] Teodoro Bonner DO [address] [facility] [address] [place] Ramon, [place] [id number] Encounter for consultation; in first trimester Social History Tobacco UseTypesPacks/DayYears UsedDateSmoking Tobacco: Every DayCigarettes Smokeless Tobacco: Never Comments:6-10 cigarettes/day Alcohol UseStandard Drinks/WeekCommentsNot Currently0 (1 standard drink = 0.6 oz pure alcohol)CommentsNoSex and Gender InformationValueDate RecordedSex Assigned at BirthNot on fileLegal WxuFbzztr69/15/2023 8:22 PM EDTGender Identity Not on fileSexual OrientationNot on filedocumented as of this encounter Last Filed Vital Signs Vital SignReadingTime TakenCommentsBlood Tgehvpay50/6209/12/2025 11:38 AM EDT Pulse--Temperature--Respiratory Rate--Oxygen Saturation--Inhaled Oxygen Concentration--Mptjil81.2 kg (101 lb 12.8 oz)09/12/2025 11:38 AM EDTHeight--Body Mass Index22.03001/13/2023 12:00 PM ESTdocumented in this encounter Plan of Treatment NameTypePriorityAssociated DiagnosesOrder SchedulehCG, quantitativeLabRoutine Encounter for consultation in first trimester Ordered: 09/12/2025documented as of this encounter Visit Diagnoses Diagnosis Encounter for consultation in first trimester documented in this encounter Care Teams Team MemberRelationshipSpecialtyStart DateEnd Date Unallocated, Noms Provider, [address] [place] [address] PCP - Hpcbtkz18/18/23documented as of this encounter
--- OUTSIDE RECORDS SUMMARY | 2025-09-13 13:13 | XMS_ITS | Clinical Summary ---
Author Organization [facility] Address [address] [place] [address] Care Team Providers Care Computer Consultant Name Role Phone Unallocated, Noms Provider MD Primary Care Provi manasa Allergies Active AllergyReactionsCriticalityNoted UzsuLbvietgfTyhdrjfceCebcoxdvh12/14/2018 Celery NyvKudog07/09/5781MswvesgwkLbylk11/09/2017LamotrigineRash,UnknownLow 04/01/2018 Medications MedicationSigDispense QuantityRefillsLast FilledStart DateEnd DateStatus 28-0.8 MG tablet 1 (one) time each day at the same time.Active ibuprofen 800 MG tablet Take 800 mg by mouth every 8 (eight) hours if needed. Discontinued(Therapy completed) Encounters DateTypeDepartmentCare YdanCwiohrnubnn21/27/2025 11:30 AM EDTOffice Visit [facility] [address] [facility] [address] [address] Teodoro Bonner DO Encounter for consultation; in first iwzbpfkxh94/27/2025Telephone [facility] [address] [facility] [address] Lucy Knox LPN 09/12/2025amboo flowsheet [facility] [address] [place] [address] Teodoro Bonner DO 08/31/2025Telephone [facility] [address] [place] [address] [place] [phone] Teodoro Bonner DO from Last 3 Months Family History Medical HistoryRelationNameCommentsADD / ADHDMotherAnxiety disorderMotherCancer MotherDepressionMotherDiabetesMotherRelationNameStatusCommentsFatherAliveMother Alive Social History Tobacco UseTypesPacks/DayYears UsedDateSmoking Tobacco: Every DayCigarettes Smokeless Tobacco: Never Tobacco Cessation:Ready to Q uit: Not Asked; Counseling Given: Not Answered Comments:6-10 cigarettes/day Alcohol UseStandard Drinks/WeekCommentsNot Currently0 (1 standard drink = 0.6 oz pure alcohol)CommentsNoSex and Gender InformationValueDate RecordedSex Assigned at BirthNot on fileLegal YyySuxrqm00/15/2023 8:22 PM EDTGender Identity Not on fileSexual OrientationNot on file Last Filed Vital Signs Vital SignReadingTime TakenCommentsBlood Nclseoyy88/6209/12/2025 11:38 AM EDT Pulse--Temperature--Respiratory Rate--Oxygen Saturation--Inhaled Oxygen Concentration--Dtibgc09.2 kg (101 lb 12.8 oz)09/12/2025 11:38 AM ADOGkcgdp910.8 cm (4' 9 )01/13/2023 12:00 PM ESTBody Mass Index22.03001/13/2023 12:00 PM EST Plan of Treatment Health MaintenanceDue DateLast DoneCommentsMMR Vaccines (1 of 1 - Standard series)1999DTaP/Tdap/Td Vaccines (1 - Tdap)2005Varicella Vaccines (1 of 2 - 13+ 2-dose series)2011Hepatitis B Vaccines (1 of 3 - 19+ 3-dose series)2017Pneumococcal Vaccine: Pediatrics (0 to 5 Years) and At-Risk Patients (6 to 64 Years) (1 of 2 - PCV)2017HPV Vaccines (1 - 3-dose SCDM series)5COVID-19 Vaccine (1 - season)2025Influenza Vaccine (#1)2025HIB VaccinesAged OutNo longer eligible based on patient's age to complete this topicHepatitis A VaccinesAged OutNo longer eligible based on patient's age to complete this topicIPV VaccinesAged OutNo longer eligible based on patient's age to complete this topicMeningococcal B VaccineAged OutNo longer eligible based on patient's age to complete this topicMeningococcal VaccineAged OutNo longer eligible based on patient's age to complete this topic Rotavirus VaccinesAged OutNo longer eligible based on patient's age to complete this topic Insurance Care Teams Team MemberRelationshipSpecialtyStart DateEnd Date Unallocated, Noms Provider, [address] [address] [address] [place], [place] [id number] PCP - Vdgwxcy61/18/23
--- OUTSIDE RECORDS SUMMARY | 2025-09-13 13:13 | XMS_ITS | Encounter Summary ---
Author Organization [employer] [facility] tem Address [id number] [place] [address] Care Team Providers Care Supplies Packer Name Role Phone No Pcp, No Pcp Primary Care Provider Unavailabl e Encounter Details DateTypeDepartmentCare Team (Latest Contact Info)Vutykhztnzv29/15/2025Travel Social History Tobacco UseTypesPacks/DayYears UsedDateSmoking Tobacco: Every DayCigarettes Smokeless Tobacco: NeverAlcohol UseStandard Drinks/WeekCommentsNot Currently0 (1 standard drink = 0.6 oz pure alcohol)occasionallyChildcareAnswerDate Recorded FdnugktatHefvrdb96/12/2019EmploymentAnswerDate RecordedEmploymentUnknown 04/28/2019Hunger ScreeningAnswerDate RecordedWithin the past 12 months we worried whether our food would run out before we got money to buy more.Never True08/31/2025Within the past 12 months the food we bought just didn't last and we didn't have money to get more.Never True08/31/2025Purpose - LifeAnswerDate RecordedPurpose and direction in ycetNguegbr00/08/2021CommentsYesSex and Gender InformationValueDate RecordedSex Assigned at BirthNot on fileLegal Sex Yajger2406/22/2015 11:54 AM EDTGender IdentityNot on fileSexual OrientationNot on filedocumented as of this encounter Plan of Treatment Not on file documented as of this encounter Visit Diagnoses Not on filedocumented in this encounter Care Teams Team MemberRelationshipSpecialtyStart DateEnd Date No Pcp, [place] [address] [facility]12/21/24documented as of this encounter
--- OUTSIDE RECORDS SUMMARY | 2025-09-13 13:13 | XMS_ITS | Encounter Summary ---
Author Organization [facility] Address [address] [place] [address] Care Team Providers Care Bilingual Hr Generalist Name Role Phone Unallocated, Noms Provider MD Primary Care Provi manasa Encounter Details DateTypeDepartmentCare Team (Latest Contact Info)Sbsgygkvkbz98/15/2025Telephone ERIKA Ramon OBGYN [address] [place] [phone] Teodoro Bonner, [address] [facility] [address] [place], [facility] Social History Tobacco UseTypesPacks/DayYears UsedDateSmoking Tobacco: Every DayCigarettes Smokeless Tobacco: Never Comments:6-10 cigarettes/day Alcohol UseStandard Drinks/WeekCommentsNot Currently0 (1 standard drink = 0.6 oz pure alcohol)CommentsUnknownSex and Gender InformationValueDate Recorded Sex Assigned at BirthNot on fileLegal SehSxvjwo47/15/2023 8:22 PM EDTGender IdentityNot on fileSexual OrientationNot on filedocumented as of this encounter Miscellaneous Notes * Addendum Note - Flash Javier LPN - 09/01/2025 12:10 PM EDTAddended by: FLASH JAVIER on: 09/01/2025 12:10 PM Modules accepted: Orders * Telephone Encounter - Flash Javier LPN - 09/01/2025 12:07 PM EDT Patient call was returned and she was advised she does not have to do the HCG as this will fluctuate and we will have her repeat ultrasound in 1 week, this is normal at this stage as heart is immature. Patient advised we will have her come in on Friday or Friday for a sneak peak. Patient was transferred to clerical to schedule this and repeat ultrasound in 1 week. * Addendum Note - Flash Javier LPN - 09/01/2025 11:53 AM EDTAddended by: FLASH JAVIER on: 09/01/2025 11:53 AM Modules accepted: Orders * Telephone Encounter - Flash Javier LPN - 09/01/2025 11:48 AM EDT Patient called back and she is experiencing the same symptoms cramping has gotten worse but about the same. Patient is having light bleeding. Patient is advised that we can order labs at this time and she is instructed if heavy bleeding, cramping worsening go to ER. Will talk with provider and return patient call. * Telephone Encounter - Flash Javier LPN - 08/31/2025 2:52 PM EDT Patient called the office and she was advised to follow up with our office as she was in ER and shewas having bleeding and low heart heart. Notes are in chart and patient was transferred to clericalto schedule documented in this encounter Plan of Treatment NameTypePriorityAssociated DiagnosesOrder SchedulehCG, quantitative, LabRoutine Positive urine test ([facility]HS-HCC) Expected: 09/01/2025 (Approximate), Expires: 03/02/2026US OB transvaginalImaging Routine Positive urine test ([facility]HS-HCC) Irregular heart rate ([facility]HS-HCC) Expected: 09/01/2025, Expires: 12/02/2025documented as of this encounter Visit Diagnoses Diagnosis Positive urine test ([facility]HS-HCC) Irregular heart rate ([facility]HS-HCC) documented in this encounter Care Teams Team MemberRelationshipSpecialtyStart DateEnd Date Unallocated, Noms Provider, [address] [place] [address] PCP - Cthhfho78/18/23documented as of this encounter
--- OUTSIDE RECORDS SUMMARY | 2025-09-13 13:13 | XMS_ITS | Encounter Summary ---
Author Organization [facility] Address [address] [place] [address] Care Team Providers Care Apparel Pattern Maker Name Role Phone Unallocated, Noms Provider Primary Care Provi manasa Encounter Details DateTypeDepartmentCare Team (Latest Contact Info)Rkzlvlukrcp06/27/2025amboo flowsheet ERIKA Ramon OBGYN [address] [place] [phone] Teodoro Bonner, [address] [facility] [place] [address] Social History Tobacco UseTypesPacks/DayYears UsedDateSmoking Tobacco: Every DayCigarettes Smokeless Tobacco: Never Comments:6-10 cigarettes/day Alcohol UseStandard Drinks/WeekCommentsNot Currently0 (1 standard drink = 0.6 oz pure alcohol)CommentsNoSex and Gender InformationValueDate RecordedSex Assigned at BirthNot on fileLegal BcaDuohvy56/15/2023 8:22 PM EDTGender Identity Not on fileSexual OrientationNot on filedocumented as of this encounter Plan of Treatment Not on file documented as of this encounter Visit Diagnoses Not on filedocumented in this encounter Care Teams Team MemberRelationshipSpecialtyStart DateEnd Date Unallocated, Noms Provider, MD Rupinder [facility] [place] [address] PCP - Dymaabp27/18/23documented as of this encounter
--- OUTSIDE RECORDS SUMMARY | 2025-09-13 13:13 | XMS_ITS | Encounter Summary ---
Author Organization [facility] Address [address] [place] [address] Care Team Providers Care Customer Success Associate Name Role Phone Unallocated, Nomollie Provider Primary Care Provi manasa Encounter Details DateTypeDepartmentCare Team (Latest Contact Info)Yzqmqyeekub20/27/2025Telephone ERIKA Ramon OBGYN [address] [place], [place] [address] [place] [address] Lucy Knox LPN Social History Tobacco UseTypesPacks/DayYears UsedDateSmoking Tobacco: Every DayCigarettes Smokeless Tobacco: Never Comments:6-10 cigarettes/day Alcohol UseStandard Drinks/WeekCommentsNot Currently0 (1 standard drink = 0.6 oz pure alcohol)CommentsNoSex and Gender InformationValueDate RecordedSex Assigned at BirthNot on fileLegal LlrChkchj85/15/2023 8:22 PM EDTGender Identity Not on fileSexual OrientationNot on filedocumented as of this encounter Miscellaneous Notes * Telephone Encounter - Lucy Knox LPN - 09/12/2025 12:10 PM EDT Check for Quant levels that patient is having drawn today. --ss documented in this encounter Plan of Treatment Not on file documented as of this encounter Visit Diagnoses Not on filedocumented in this encounter Care Teams Team MemberRelationshipSpecialtyStart DateEnd Date Unallocated, Mary Beths MD Emili [address] [place] [address] PCP - Fcgspcr62/18/23documented as of this encounter
--- OUTSIDE RECORDS SUMMARY | 2025-09-13 13:13 | XMS_ITS | Clinical Summary ---
Author Organization [facility] tem Address [id number] [address] [place] [address] Care Team Providers Care Generator Man Name Role Phone No Pcp, No Pcp Primary Care Provider Unavailabl e Allergies Active AllergyReactionsCriticalityNoted DateCommentsCelery (Apium Graveolens) (Umbelliferae)06/25/20170864Unckwszmw90/09/8263EdcsbkydrecDmxmStg11/16/2020 Medications MedicationSigDispense QuantityRefillsLast FilledStart DateEnd DateStatus prenat.vits,jluis,efg-xtpg-yfhhb ( VITAMIN) tablet Take by mouth.Active acetaminophen (TYLENOL EXTRA STRENGTH) 500 mg tablet Take 1 tablet (500 mg total) by mouth every 6 (six) hours as needed for pain. 30 tablet 2Active ondansetron ODT (ZOFRAN ODT) 4 mg disintegrating tablet Dissolve 1 tablet (4 mg total) on tongue every 8 (eight) hours as needed for nausea for up to 10 doses. 10 tablet 07/31/2022ctive Additional Information Patient not taking.Reported on 12/27/2022 doxylamine-pyridoxine, vit B6, (DICLEGIS) 10-10 mg tablet,delayed release (DR/EC) Take 2 tablets by mouth nightly. 21 tablet 07/31/2022ctive Additional Information Patient not taking.Reported on 12/27/2022 ondansetron ODT (ZOFRAN ODT) 4 mg disintegrating tablet Dissolve 1 tablet (4 mg total) on tongue 3 (three) times a day as needed for nausea for up to 3 doses. 3 tablet 5Active ibuprofen (MOTRIN) 600 mg tablet Indications:Right non-suppurative otitis mediaTake 1 tablet (600 mg total) by mouth every 6 (six) hours as needed for pain. 20 tablet Discontinued() Active Problems ProblemNoted DateDiagnosed DateAdmission for observation of suspected anomaly not found12/27/2022Late care10/02/2020Bipolar disorder 10/02/20209684Hpjckk12/16/2020Marijuana use10/02/2020Abnormal ultrasound 10/02/20204593Twogjfi51/16/0784Qcoezgckug18/16/2020CommentsYes Encounters DateTypeDepartmentCare QxodNuczwxlpyvp64/15/2025 9:38 AM EDT - 08/31/2025 2:08 PM EDTE[facility]King[facility] [place] [facility] [address] [place] [address] Keshav Mena DO Abnormal ultrasound (Primary Dx); Right sided abdominal pain; Intrauterine Discharge Disposition: Home08/31/20253446Sydcxh55/30/2025Telephone [facility] Mandie Shelley CMA Establish Care07/06/2025 11:43 PM EDT - 07/07/2025 12:29 AM EDTEmerKing[facility] [place] [facility] [address] [place] [address] Tobi Duvall MD Right non-suppurative otitis media (Primary Dx) Discharge Disposition: Home07/06/2025Travelfrom Last 3 Months Family History Medical HistoryRelationNameCommentsDiabetesMaternal GrandfatherHeart attack Maternal GrandfatherCancerMotherDiabetesMotherRelationNameStatusCommentsBrother Deceasedcommitted suicideMaternal GrandfatherMother Social History Tobacco UseTypesPacks/DayYears UsedDateSmoking Tobacco: Every DayCigarettes Smokeless Tobacco: Never Tobacco Cessation:Ready to Q uit: Not Asked; Counseling Given: Not Answered Alcohol UseStandard Drinks/WeekCommentsNot Currently0 (1 standard drink = 0.6 oz pure alcohol)occasionallyChildcareAnswerDate MwhumlqgRmmdbgdrwAvgatgv79/12/2019 EmploymentAnswerDate ZfjqvbxrAwdpsjpnoiKcvtnwe78/12/2019Hunger ScreeningAnswer Date RecordedWithin the past 12 months we worried whether our food would run out before we got money to buy more.Never True08/31/2025Within the past 12 months the food we bought just didn't last and we didn't have money to get more.Never True08/31/2025Purpose - LifeAnswerDate RecordedPurpose and direction in life Zreghfj38/08/2021CommentsYesSex and Gender InformationValueDate Recorded Sex Assigned at BirthNot on fileLegal EmjAioopn19/06/2015 11:54 AM EDTGender IdentityNot on fileSexual OrientationNot on file Last Filed Vital Signs Vital SignReadingTime TakenCommentsBlood Cfprniln72/441 2:05 PM EDT Eesnd908508/31/2025 2:05 PM RGEIgthrfloyaz36.6 ??C (97.9 ??F)08/31/2025 9:41 AM EDTRespiratory Omww2218 2:05 PM EDTOxygen Ietkajoupv452%08/31/2025 2:05 PM EDTInhaled Oxygen Concentration--Djmnhi50.6 kg (105 lb)08/31/2025 9:41 AM EDT Cfjmzo778.8 cm (4' 9 )08/31/2025 9:41 AM EDTBody Mass Index22.7208/31/2025 9:41 AM EDT Plan of Treatment Health MaintenanceDue DateLast DoneCommentsTobacco Uezkoddclq1998 Depression Fjahymdxb44/08/2010Pap Smear2019DTaP,Tdap and Td Vaccines (7 - Td or Tdap), 06/29/2003, 07/19/1999, Additional history existsInfluenza Nlhaken4307/18/2025dult BMI Ocpcrrufd08Tobacco Buzmkgikc91 Medical Devices Not on file Procedures Procedure NamePriorityDate/TimeAssociated DiagnosisCommentsUS ABDOMEN LMTDSTAT 08/31/2025 1:13 PM EDT US PREG LESS THAN 14 WKS WITH ATGZUGHPFUTARXOE96/15/2025 11:40 AM EDT REPEATED HSZAIGndjbvf35/15/2025 11:20 AM EDT TYPE AND HZBFQTOBTC77/15/2025 11:20 AM EDT LIPASESTAT Add-on08/31/2025 11:20 AM EDT LIVER PANELSTAT Add-on08/31/2025 11:20 AM EDT HCG-BETA, FOEDFAKHD14/15/2025 11:20 AM EDT AQELTFUL79/15/2025 11:20 AM EDT PROTIME & RCDSDYW3208/31/2025 11:20 AM EDT BASIC METABOLIC IFRAGNZXZ91/15/2025 11:20 AM EDT CBC WITH AUTO QOFSEQKWWCJPNZLH75/15/2025 11:20 AM EDT POCT , URINE (NUCG)Jidjykj6508/31/2025 10:56 AM EDT POCT NURSING URINE MACROSCOPIC TFIhgdtxd93/15/2025 10:55 AM EDT ER EXTRA URINE CUQSVTWRSP03/15/2025 10:53 AM EDT ER EXTRA URINE DUXAIAGMMYS64/15/2025 10:53 AM EDT ER EXTRA PIIYALQEH81/15/2025 10:53 AM EDT from Last 3 Months Results * Ultrasound abdomen limited (08/31/2025 1:13 [...] on 08/31/2025 1:19 PM Authorizing ProviderResult TypeResult StatusBrian S Obryole DOIMG US ORDERABLES Final Result * Ultrasound less [...] sac. Yolk sac demonstrated measuring 3.7 mm. [place]-rump 0.19 cm corresponding to a gestational age [...] gestational sac. Yolk sac demonstrated measuring 3.7 mm.[place]-rump 0.19 cm corresponding to a gestational age [...] on 08/31/2025 11:58 AM Authorizing ProviderResult TypeResult Tato Mena [facility] [place] [place] ORDERABLES Final Result * ABO Rh Repeat (08/31/2025 11:20 AM EDT)ComponentValueRef RangeTest Method Analysis TimePerformed AtPathologist NhovdxikjCICN27/15/2025 12:36 PM EDTFRE BB - POSYWFSHDOxrxfxxc77/15/2025 12:36 PM EDTFRE BB - AWASpecimen (Source) Anatomical Location / LateralityCollection Method / VolumeCollection Time Received TimeBloodVenous blood / UnknownVenipuncture / Vgdoais1508/31/2025 11:20 AM EDT1 11:30 AM EDT Narrative Authorizing ProviderResult TypeResult Tato Mena DOBLOOD BANK TEST ORDERABLESFinal ResultPerforming OrganizationAddressCity/State/ZIP CodePhone Number OSWALDO KRYSTIAN BILLINGS [address] [place] [address], * CBC auto differential (08/31/2025 11:20 AM EDT)ComponentValueRef RangeTest MethodAnalysis TimePerformed AtPathologist SignatureWBC6.94 - 11 x10E9/L 08/31/2025 11:34 AM EDTPHOLZER HEALTH SYSTEMRBC Count4.303.8 - 5.2 X10E12/L1 11:34 AM [facility] Bysqmhiduy66.111.7 - 15.5 g/dL08/31/2025 11:34 AM TPHOLZER HEALTH SYSTEMHematocrit37.435 - 47 %08/31/2025 11:34 AM EDTPHOLZER HEALTH SYSTEMMCV8780 - 100 fL08/31/2025 11:34 AM EDTPSYCAMORE MEDICAL CENTERH30.427 - 34 pg08/31/2025 11:34 AM EDREGENCY HOSPITAL CLEVELAND WESTMCHC34.932 - 36 g/dL08/31/2025 11:34 AM EDTPHOLZER HEALTH SYSTEMRDW12.811.5 - 15 %08/31/2025 11:34 AM EDTPHOLZER HEALTH SYSTEMPlatelet Ttevo159688 - 450 X10E9/L1 11:34 AM EDTPHOLZER HEALTH SYSTEMMPV7.27 - 12 fL08/31/2025 11:34 AM EDT [facility]ITALNeutrophils %70.2%08/31/2025 11:34 AM EDT [facility]ITALLymphocytes %23.3%08/31/2025 11:34 AM EDT [facility]ENTERMonocytes %5.0%08/31/2025 11:34 AM EDT [facility] HOSPITALEosinophils %1.2%08/31/2025 11:34 AM EDT [facility]ITALBasophils %0.3%08/31/2025 11:34 AM EDT [facility]ITALNeutrophils Absolute (A)4.81.5 - 6.6 10*3/uL08/31/2025 11:34 AM EDTPHOLZER HEALTH SYSTEMLymphocytes Absolute1.61.0 - 3.5 10*3/uL08/31/2025 11:34 AM EDTPHOLZER HEALTH SYSTEMMonocytes Absolute0.30.0 - 0.9 10*3/uL08/31/2025 11:34 AM EDTPHOLZER HEALTH SYSTEMEosinophils Absolute0.10.0 - 0.4 10*3/uL08/31/2025 11:34 AM EDTPROMEDICA FREMONT MEMORIAL HOSPITALBasophils Absolute0.00.0 - 0.2 10*3/uL08/31/2025 11:34 AM EDREGENCY HOSPITAL CLEVELAND WESTDifferential TypeAUTOMATED DISABFYGYCGS16/15/2025 11:34 AM EDMarietta [facility] (Source)Anatomical Location / LateralityCollection Method / VolumeCollection TimeReceived TimeBloodVenous blood / UnknownVenipuncture / Iztezff0208/31/2025 11:20 AM EDT1 11:30 AM EDT Narrative Authorizing ProviderResult TypeResult StatusBrian S Obrycki DOLAB BLOOD ORDERABLESFinal ResultPerforming OrganizationAddressCity/State/ZIP CodePhone Number [address] [place] [address], [place] * APTT (08/31/2025 11:20 AM EDT)ComponentValueRef RangeTest MethodAnalysis Time Performed AtPathologist HfeqyftgoUETA3580 - 37 sec08/31/2025 11:44 AM EDT [facility] (Source)Anatomical Location / LateralityCollection Method / VolumeCollection TimeReceived TimeBloodVenous blood / UnknownVenipuncture / Wehyttp4108/31/2025 11:20 AM EDT1 11:30 AM EDT Narrative Authorizing ProviderResult TypeResult Statusian S Obrycki DOLAB BLOOD ORDERABLESFinal ResultPerforming OrganizationAddressCity/State/ZIP CodePhone Number [address] [place] [address], [place] * Protime & INR (08/31/2025 11:20 AM EDT)ComponentValueRef RangeTest Method Analysis TimePerformed AtPathologist CervbymvaNTPIPRL68.19.8 - 13.2 sec 08/31/2025 11:44 AM EDREGENCY HOSPITAL CLEVELAND WESTINR1.00.9 - 1.2 08/31/2025 11:44 AM [facility] (Source) Anatomical Location / LateralityCollection Method / VolumeCollection Time Received TimeBloodVenous blood / UnknownVenipuncture / Xofvyvf3708/31/2025 11:20 AM EDT1 11:30 AM EDT Narrative Authorizing ProviderResult TypeResult StatusKeshav Wynn Obryckole DOLAB BLOOD ORDERABLESFinal ResultPerforming OrganizationAddressCity/State/ZIP CodePhone Number [facility] [address] [place] [address], [place] * Type and screen(includes indirect scooby) (08/31/2025 11:20 AM EDT)Component ValueRef RangeTest MethodAnalysis TimePerformed AtPathologist SignatureABOO 08/31/2025 12:21 PM EDTFRE BB - XKDHLIDPNCqrtemak62/15/2025 12:21 PM EDTFRE BB - WELLSKYAntibody HxjpxxNrcilvgr31/15/2025 12:21 PM EDTFRE BB - WELLSKY Specimen (Source)Anatomical Location / LateralityCollection Method / Volume Collection TimeReceived TimeBloodVenous blood / UnknownVenipuncture / Unknown 08/31/2025 11:20 AM EDT1 11:30 AM EDT Narrative Authorizing ProviderResult TypeResult Tato Mena DOBLOOD BANK TEST ORDERABLESEdited Result - FinalPerforming OrganizationAddressCity/State/ZIP Code Phone Number OSWAL[facility] BILLINGS [address] [place] [address], [place] * HCG, Quantitative, (08/31/2025 11:20 AM EDT)ComponentValueRef Range Test MethodAnalysis TimePerformed AtPathologist SignatureSERUM B HCG,3RD I.S. 33,871mIU/mL08/31/2025 12:[address] [facility] MEDICAL CENTERpecimen (Source)Anatomical Location / LateralityCollection Method / VolumeCollection TimeReceived TimeBloodVenous blood / UnknownVenipuncture / Vrrwnpb6808/31/2025 11:20 AM EDT1 11:30 AM EDT Narrative [facility] - 08/31/2025 12:42 PM EDT WEEKS (SINCE [...] trophoblastic or nontrophoblastic neoplasms. Authorizing ProviderResult TypeResult StatusBrian S Obrycki DOLAB BLOOD ORDERABLESFinal ResultPerforming OrganizationAddressCity/State/ZIP CodePhone Number [facility] [address] [place] [address], * Lipase (08/31/2025 11:20 AM EDT)ComponentValueRef RangeTest MethodAnalysis TimePerformed AtPathologist ZohqghkvhZESLCA3428 - 40 U/L1 1:23 PM EDT [facility]ENTERpecimen (Source)Anatomical Location / LateralityCollection Method / VolumeCollection TimeReceived TimeBloodVenous blood / UnknownVenipuncture / Znfmfdm0108/31/2025 11:20 AM EDT1 11:30 AM EDT Narrative Authorizing ProviderResult TypeResult StatusBrian S Obrycki DOLAB BLOOD ORDERABLESFinal ResultPerforming OrganizationAddressCity/State/ZIP CodePhone Number [facility] [address] [place] [address], [place] * Liver panel (08/31/2025 11:20 AM EDT)ComponentValueRef RangeTest Method Analysis TimePerformed AtPathologist SignatureTOTAL PROTEIN7.56.0 - 8.0 g/dL 08/31/2025 1:23 PM EDTPHOLZER HEALTH SYSTEMALBUMIN4.63.2 - 5.3 g/dL08/31/2025 1:23 PM [facility] HOSPITALBILIRUBIN,TOTAL 0.80.3 - 1.2 mg/dL08/31/2025 1:23 PM [facility] ALKALINE IAWTJOXRLNI1327 - 130 U/L1 1:23 PM [facility]ITALAST16<=41 U/L1 1:23 PM [facility]ITALALT17<=31 U/L1 1:23 PM [facility] BILIRUBIN,DIRECT0.1<=0.4 mg/dL08/31/2025 1:23 PM [facility]ITALpecimen (Source)Anatomical Location / LateralityCollection Method / VolumeCollection TimeReceived TimeBloodVenous blood / UnknownVenipuncture / Rcisouu7408/31/2025 11:20 AM EDT1 11:30 AM EDT Narrative Authorizing ProviderResult TypeResult StatusBrian S Obchristineole DOLAB BLOOD ORDERABLESFinal ResultPerforming OrganizationAddressCity/State/[facility] CodePhone Number [facility] [address] [place] [address], [place] * (ABNORMAL) Basic Metabolic Panel (08/31/2025 11:20 AM EDT)ComponentValueRef RangeTest MethodAnalysis TimePerformed AtPathologist BywzlykamCHEJIE048716 - 146 mmol/L1 12:07 PM EDTPHOLZER HEALTH SYSTEMPOTASSIUM 3.4(L)3.5 - 5.0 mmol/L1 12:07 PM [facility] HOSPITALCHLORIDE9998 - 109 mmol/L1 12:07 PM [facility] HOSPITALCARBON SQGNWSR0028 - 32 mmol/L1 12:07 PM EDT [facility]ITALANION SUR623 - 15 mmol/L1 12:07 PM [facility] HOSPITALBLOOD UREA SGJWMRJN54 - 23 mg/dL 08/31/2025 12:07 PM [facility] HOSPITALCREATININE0.580.40 - 1.00 mg/dL08/31/2025 12:07 PM [facility]OSPITALComment: METHOD TRACEABLE TO IDMS HVZPBCDHVSYZMXY7247 - 99 mg/dL08/31/2025 12:07 PM EDT [facility]OS[facility]ITALCALCIUM9.28.5 - 10.5 mg/dL08/31/2025 12:07 PM [facility] HOSPITALEGFR Non-Race Dependent>90>=60 ml/min/1.73sq.m1 12:07 PM [facility] Comment: eGFR not reported due to non-numeric value for Creatinine. Reported eGFR is based on the CKD-EPI 2020 equation that does not use a race coefficient. Specimen (Source)Anatomical Location / LateralityCollection Method / Volume Collection TimeReceived TimeBloodVenous blood / UnknownVenipuncture / Unknown 08/31/2025 11:20 AM EDT1 11:30 AM EDT Narrative Authorizing ProviderResult TypeResult StatusBrchuckie Mena DOLAB BLOOD ORDERABLESFinal ResultPerforming OrganizationAddressCity/State/ZIP CodePhone Number [facility] [address] [place] [address], * (ABNORMAL) POCT , urine (08/31/2025 10:56 AM EDT)ComponentValueRef RangeTest MethodAnalysis TimePerformed AtPathologist SignaturePOC Urine PregnancyPositive(A)Negative, Spicygnqeigcq48/15/2025 10:58 AM [facility]ITALpecimen (Source)Anatomical Location / Laterality Collection Method / VolumeCollection TimeReceived ImukSnsfm55/15/2025 10:56 AM EDT1 10:58 AM EDT Narrative Authorizing ProviderResult TypeResult StatusBrian Kingsley Mena DOPOINT OF CARE TEST ORDERABLESFinal ResultPerforming OrganizationAddressCity/State/ZIP CodePhone Number [facility] [address] [place] [address], [place] * (ABNORMAL) POCT Nursing Urine Macroscopic UA (08/31/2025 10:55 AM EDT) ComponentValueRef RangeTest MethodAnalysis TimePerformed AtPathologist [facility] Urine Specific Gravity1.0101.010, 1.015, 1.020, 1.2917208/31/2025 10:56 AM [facility] Urine Leukocyte Esterase KvrlozkaBbnuotmb23/15/2025 10:56 AM [facility] Urine TzuaxtlDhhlcgeiHmiapakn96/15/2025 10:56 AM [facility] Urine pH7.05.0, 6.0, 6.5, 7.0, 7.5, 8.0, 8.5, 5. 10:56 AM [facility] Urine ProteinNegativeNegative 08/31/2025 10:56 AM [facility] Urine Glucose OpvkgplsNcielqdp78/15/2025 10:56 AM [facility] Urine Vnxfuuk04 mg/dL(A)Bksmthcc08/15/2025 10:56 AM [facility] Urine Urobilinogen0.2 E.U./dL08/31/2025 10:56 AM EDT [facility] Urine BilirubinNegativeNegative 08/31/2025 10:56 AM [facility] Urine Blood/HGB Trace(A)Fpnnjntr69/15/2025 10:56 AM [facility] Specimen (Source)Anatomical Location / LateralityCollection Method / Volume Collection TimeReceived ScwaPujox72/15/2025 10:55 AM EDT1 10:56 AM EDT Narrative Authorizing ProviderResult TypeResult StatusBrian S Obrycki DOPOINT OF CARE TEST ORDERABLESFinal ResultPerforming OrganizationAddEdgewood Surgical Hospitalty/State/ZIP CodePhone Number [address] [place] [address], [place] * Extra Urine [place] (08/31/2025 10:53 AM EDT)ComponentValueRef RangeTest Method Analysis TimePerformed AtPathologist SignatureExtra TubeAuto Resulted 08/31/2025 12:02 PM EDM[facility] (Source) Anatomical Location / LateralityCollection Method / VolumeCollection Time Received TimeUrineUrine specimen collection, clean catch / Cjueyyj0208/31/2025 10:53 AM EDT1 11:31 AM EDT Narrative Authorizing ProviderResult TypeResult StatusBrian S Obrycki DOURINE ORDERABLES Final ResultPerforming OrganizationAddressty/State/ZIP CodePhone Number [address] [place] [address], [place] * Extra Urine Culture (08/31/2025 10:53 AM EDT)ComponentValueRef RangeTest MethodAnalysis TimePerformed AtPathologist SignatureExtra TubeAuto Resulted 08/31/2025 12:02 PM [facility] (Source) Anatomical Location / LateralityCollection Method / VolumeCollection Time Received TimeUrineUrine specimen collection, clean catch / Qlzwbmp7708/31/2025 10:53 AM EDT1 11:31 AM EDT Narrative Authorizing ProviderResult TypeResult StatusBrian S Obrycki DOURINE ORDERABLES Final ResultPerforming OrganizationAddEdgewood Surgical Hospitalty/State/ZIP CodePhone Number [address] [place] [address], [place] * Extra Urine (08/31/2025 10:53 AM EDT)ComponentValueRef RangeTest Method Analysis TimePerformed AtPathologist SignatureExtra TubeAuto Resulted 08/31/2025 12:[address] [facility] MEDICAL CENTERpecimen (Source) Anatomical Location / LateralityCollection Method / VolumeCollection Time Received TimeUrineUrine specimen collection, clean catch / Hnlnwzj3908/31/2025 10:53 AM EDT1 11:30 AM EDT Narrative Authorizing ProviderResult TypeResult StatusBrchuckie S Obrycki DOURINE ORDERABLES Final ResultPerforming OrganizationAddressCity/State/ZIP CodePhone Number [facility] [address] [place] [address], from Last 3 Months Insurance * Guarantor: Neo Rojas TypeRelation to PatientDate of PhoneBilling VmombmdSoknwLvxy[address] [place] [address] Care Teams Team MemberRelationshipSpecialtyStart DateEnd Date No [place], [place] [phone] [facility]
== END 2025-09-19 12:05 | disposition home or self-care (01) ==
LOC: LAB 13:08
PROVIDERS: Visit Provider Obstetrics & Gynecology
DX: Z33.2 Encounter for elective termination of pregnancy (principal); Z51.81 Encounter for therapeutic drug level monitoring; Z71.9 Counseling, unspecified
CPT/HCPCS: 36415; 84702

== ENCOUNTER 2025-09-28 13:11 | Outpatient (OUT) | payer OTHER, SELFPAY ==
--- OUTSIDE RECORDS SUMMARY | 2025-09-28 13:14 | XMS_ITS | Clinical Summary ---
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 [address] [place] [address] [facility] - General12/29/07
--- OUTSIDE RECORDS SUMMARY | 2025-09-28 13:14 | XMS_ITS | Clinical Summary ---
Author Organization [employer]s tem Address [id number] [address] [place] [address] Care Team Providers Care Nitroglycerin Separator Operator Name Role Phone No Pcp, No Pcp Primary Care Provider Unavailabl e Allergies Active AllergyReactionsCriticalityNoted DateCommentsCelery (Apium Graveolens) (Umbelliferae)06/25/20177846Kftvbglyy67/09/4625VvynfkvrffxFipaPjp51/16/2020 Medications MedicationSigDispense QuantityRefillsLast FilledStart DateEnd DateStatus prenat.vits,jluis,zeb-ouoc-lfypc ( VITAMIN) tablet Take by mouth.Active acetaminophen [...] of suspected anomaly not found12/27/2022Late care10/02/2020Bipolar disorder 10/02/20208077Iklndx36/16/2020Marijuana use10/02/2020Abnormal ultrasound 10/02/20207080Hwsnnuw80/16/5949Wzrylmjfui38/16/2020CommentsYes Encounters DateTypeDepartmentCare JvstAvuurgsypov69/15/2025 9:38 AM EDT - 08/31/2025 2:08 PM [facility]TE[facility] [address] [place] [address] Keshav Mena DO Abnormal ultrasound (Primary Dx); Right sided abdominal pain; Intrauterine Discharge Disposition: Home08/31/20253331Yykosl20/30/2025Telephone [facility] Mandie Shelley CMA Establish Care07/06/2025 11:43 PM EDT - 07/07/2025 12:29 AM EDTEmerR[facility] [address] [place] [address] Tobi Duvall MD Right non-suppurative otitis media (Primary Dx) Discharge Disposition: Home07/06/2025Travelfrom Last 3 Months Family History Medical HistoryRelationNameCommentsDiabetesMaternal GrandfatherHeart attack Maternal GrandfatherCancerMotherDiabetesMotherRelationNameStatusCommentsBrother Deceasedcommitted suicideMaternal GrandfatherMother Social History Tobacco UseTypesPacks/DayYears UsedDateSmoking Tobacco: Every DayCigarettes Smokeless Tobacco: Never Tobacco Cessation:Ready to Q uit: Not Asked; Counseling Given: Not Answered Alcohol UseStandard Drinks/WeekCommentsNot Currently0 (1 standard drink = 0.6 oz pure alcohol)occasionallyChildcareAnswerDate VehghrymYvsxblktqEavubjx69/12/2019 EmploymentAnswerDate GjqlpgzbQxkgcjpnimPorzxsr58/12/2019Hunger ScreeningAnswer Date RecordedWithin the past 12 months we worried whether our food would run out before we got money to buy more.Never True08/31/2025Within the past 12 months the food we bought just didn't last and we didn't have money to get more.Never True08/31/2025Purpose - LifeAnswerDate RecordedPurpose and direction in life Pydwhyy28/08/2021CommentsYesSex and Gender InformationValueDate Recorded Sex Assigned at BirthNot on fileLegal HonPkqnsb16/06/2015 11:54 AM EDTGender IdentityNot on fileSexual OrientationNot on file Last Filed Vital Signs Vital SignReadingTime TakenCommentsBlood Bcgrawhp93/441 2:05 PM EDT Kqqje534908/31/2025 2:05 PM YYUVxekoxmqrdv40.6 ??C (97.9 ??F)08/31/2025 9:41 AM EDTRespiratory Zvwj7298 2:05 PM EDTOxygen Nsymzoxdrw679%08/31/2025 2:05 PM EDTInhaled Oxygen Concentration--Zffcta46.6 kg (105 lb)08/31/2025 9:41 AM EDT Fbiggl869.8 cm (4' 9 )08/31/2025 9:41 AM EDTBody Mass Index22.7208/31/2025 9:41 AM EDT Plan of Treatment Health MaintenanceDue DateLast DoneCommentsTobacco Tlkcootltn1998 Depression Llpduyags95/08/2010Pap Smear2019DTaP,Tdap and Td Vaccines (7 - Td or Tdap), 06/29/2003, 07/19/1999, Additional history existsInfluenza Axxufgm0707/18/2025dult BMI Unniysskd14Tobacco Gkedwpcri92RSV ( or age 60+ yrs) (1 - 1-dose 75+ series)2073 Medical Devices Not on file Procedures Procedure NamePriorityDate/TimeAssociated DiagnosisCommentsUS ABDOMEN LMTDSTAT 08/31/2025 1:13 PM EDT US PREG LESS THAN 14 WKS WITH HHIEJNEPAHKBKZZW59/15/2025 11:40 AM EDT REPEATED MFEMUIpuecaj01/15/2025 11:20 AM EDT TYPE AND EIRTYCOHEW30/15/2025 11:20 AM EDT LIPASESTAT Add-on08/31/2025 11:20 AM EDT LIVER PANELSTAT Add-on08/31/2025 11:20 AM EDT HCG-BETA, ZFCQQEQLE16/15/2025 11:20 AM EDT WRRSCADE19/15/2025 11:20 AM EDT PROTIME & OODMMDI9908/31/2025 11:20 AM EDT BASIC METABOLIC BGWOUAPAS15/15/2025 11:20 AM EDT CBC WITH AUTO TXUVAYOVQTHEBWEC89/15/2025 11:20 AM EDT POCT , URINE (NUCG)Krgggkg4608/31/2025 10:56 AM EDT POCT NURSING URINE MACROSCOPIC QPXjqohgf73/15/2025 10:55 AM EDT ER EXTRA URINE EJDRVKIWHN54/15/2025 10:53 AM EDT ER EXTRA URINE XSALGNWPGHW86/15/2025 10:53 AM EDT ER EXTRA FDUYHDTNA54/15/2025 10:53 AM EDT from Last 3 Months [...] on 08/31/2025 1:19 PM Authorizing ProviderResult TypeResult [facility]chuckie Wynn Obrosario [facility] US ORDERABLES Final Result * Ultrasound less [...] sac. Yolk sac demonstrated measuring 3.7 mm. [place]-rump 0.19 cm corresponding to a gestational age [...] gestational sac. Yolk sac demonstrated measuring 3.7 mm.[place]-rump 0.19 cm corresponding to a gestational age [...] 08/31/2025 11:58 AM Authorizing ProviderResult TypeResult Tato Wynn Obrycki [facility] ORDERABLES Final Result * ABO Rh Repeat (08/31/2025 11:20 AM EDT)ComponentValueRef RangeTest Method Analysis TimePerformed AtPathologist ZwfosnzmyVOGQ84/15/2025 12:36 PM EDTFRE BB - EESVORKHUPiciqeed49/15/2025 12:36 PM EDTFRE KRYSTIAN - AWASpecimen (Source) Anatomical Location / LateralityCollection Method / VolumeCollection Time Received TimeBloodVenous blood / UnknownVenipuncture / Jwjqxvh7908/31/2025 11:20 AM EDT1 11:30 AM EDT Narrative Authorizing ProviderResult TypeResult Tato Hsurylola DOBLOOD BANK TEST ORDERABLESFinal ResultPerforming OrganizationAddressCity/State/ZIP CodePhone Number OSWALDO BOLAND - AWA [address] [place] [address], * CBC auto differential (08/31/2025 11:20 AM EDT)ComponentValueRef RangeTest MethodAnalysis TimePerformed AtPathologist SignatureWBC6.94 - 11 x10E9/L 08/31/2025 11:34 AM EDTPACMC HEALTHCARE SYSTEMRBC Count4.303.8 - 5.2 X10E12/L1 11:34 AM TP[facility] Ichdylauzt91.111.7 - 15.5 g/dL08/31/2025 11:34 AM EDTPACMC HEALTHCARE SYSTEMHematocrit37.435 - 47 %08/31/2025 11:34 AM EDTPACMC HEALTHCARE SYSTEMMCV8780 - 100 fL08/31/2025 11:34 AM EDGUERNSEY MEMORIAL HOSPITALMCH30.427 - 34 pg08/31/2025 11:34 AM EDTPACMC HEALTHCARE SYSTEMMCHC34.932 - 36 g/dL08/31/2025 11:34 AM EDTPACMC HEALTHCARE SYSTEMRDW12.811.5 - 15 %08/31/2025 11:34 AM EDGUERNSEY MEMORIAL HOSPITALPlatelet Rocdz613423 - 450 X10E9/L1 11:34 AM EDTPACMC HEALTHCARE SYSTEMMPV7.27 - 12 fL08/31/2025 11:34 AM EDT [facility]ITALNeutrophils %70.2%08/31/2025 11:34 AM EDT [facility]ITALLymphocytes %23.3%08/31/2025 11:34 AM EDT [facility] HOSPITALMonocytes %5.0%08/31/2025 11:34 AM EDT [facility] HOSPITALEosinophils %1.2%08/31/2025 11:34 AM EDT [facility]ITALBasophils %0.3%08/31/2025 11:34 AM EDT [facility]ITALNeutrophils Absolute (A)4.81.5 - 6.6 10*3/uL08/31/2025 11:34 AM EDTPACMC HEALTHCARE SYSTEMLymphocytes Absolute1.61.0 - 3.5 10*3/uL08/31/2025 11:34 AM EDTPMCCULLOUGH-HYDE MEMOR[facility] HOSPITALMonocytes Absolute0.30.0 - 0.9 10*3/uL08/31/2025 11:34 AM EDTPACMC HEALTHCARE SYSTEMEosinophils Absolute0.10.0 - 0.4 10*3/uL10/ 11:34 AM EDGUERNSEY MEMORIAL HOSPITALBasophils Absolute0.00.0 - 0.2 10*3/uL08/31/2025 11:34 AM EDGUERNSEY MEMORIAL HOSPITALDifferential TypeAUTOMATED FDOHOJZQTXKT78/15/2025 11:34 AM [facility] (Source)Anatomical Location / LateralityCollection Method / VolumeCollection TimeReceived TimeBloodVenous blood / UnknownVenipuncture / Hmkesce9808/31/2025 11:20 AM EDT1 11:30 AM EDT Narrative Authorizing ProviderResult TypeResult StatusBrian S Obrycki DOLAB BLOOD ORDERABLESFinal ResultPerforming OrganizationAddressCity/State/ZIP CodePhone Number [address] [place] [address], [place] * APTT (08/31/2025 11:20 AM EDT)ComponentValueRef RangeTest MethodAnalysis Time Performed AtPathologist NttyneounSDUR3803 - 37 sec08/31/2025 11:44 AM EDT [facility] (Source)Anatomical Location / LateralityCollection Method / VolumeCollection TimeReceived TimeBloodVenous blood / UnknownVenipuncture / Kwmspdf2508/31/2025 11:20 AM EDT1 11:30 AM EDT Narrative Authorizing ProviderResult TypeResult StatusBrian S Obrycki DOLAB BLOOD ORDERABLESFinal ResultPerforming OrganizationAddressCity/State/ZIP CodePhone Number [address] [place] [address], [place] * Protime & INR (08/31/2025 11:20 AM EDT)ComponentValueRef RangeTest Method Analysis TimePerformed AtPathologist KtvacrfqgRZBEWGR89.19.8 - 13.2 sec 08/31/2025 11:44 AM EDGUERNSEY MEMORIAL HOSPITALINR1.00.9 - 1.2 08/31/2025 11:44 AM [facility] (Source) Anatomical Location / LateralityCollection Method / VolumeCollection Time Received TimeBloodVenous blood / UnknownVenipuncture / Vvnqupt0908/31/2025 11:20 AM EDT1 11:30 AM EDT Narrative Authorizing ProviderResult TypeResult StatusKeshav Mena DOLAB BLOOD ORDERABLESFinal ResultPerforming OrganizationAddressty/[facility]/ZIP CodePhone Number [facility] [address] [place] [address], * Type and screen(includes indirect scooby) (08/31/2025 11:20 AM EDT)Component ValueRef RangeTest MethodAnalysis TimePerformed AtPathologist SignatureABOO 08/31/2025 12:21 PM EDTFRE BB - JMRPENUWRInkcdrmh77/15/2025 12:21 PM EDTFRE BB - WELLSKYAntibody CzsxohOhkxfuih79/15/2025 12:21 PM EDTFRE BB - TIMMYKY Specimen (Source)Anatomical Location / LateralityCollection Method / Volume Collection TimeReceived TimeBloodVenous blood / UnknownVenipuncture / Unknown 08/31/2025 11:20 AM EDT1 11:30 AM EDT Narrative Authorizing ProviderResult TypeResult Tato Mena DOBLOOD BANK TEST ORDERABLESEdited Result - FinalPerforming OrganizationAddressCity/State/ZIP Code Phone Number OSWALDO BILLINGS [address] [place] [address], * HCG, Quantitative, (08/31/2025 11:20 AM EDT)ComponentValueRef Range Test MethodAnalysis TimePerformed AtPathologist SignatureSERUM B HCG,3RD I.S. 33,871mIU/mL08/31/2025 12:42 PM EDTPROMEDICA SUTTER SOLANO MEDICAL CENTERpecimen (Source)Anatomical Location / LateralityCollection Method / VolumeCollection TimeReceived TimeBloodVenous blood / UnknownVenipuncture / Lcukljk8808/31/2025 11:20 AM EDT1 11:30 AM EDT Narrative [facility] - 08/31/2025 12:42 PM EDT WEEKS [...] DOLAB BLOOD ORDERABLESFinal ResultPerforming OrganizationAddressCity/State/ZIP CodePhone Number [facility] [address] [place] [address], * Lipase (08/31/2025 11:20 AM EDT)ComponentValueRef RangeTest MethodAnalysis TimePerformed AtPathologist JpoadhdcpAQCEWD6710 - 40 U/L1 1:23 PM EDT [facility]pec[facility] (Source)Anatomical Location / LateralityCollection Method / VolumeCollection TimeReceived TimeBloodVenous blood / UnknownVenipuncture / Omelvlk3708/31/2025 11:20 AM EDT1 11:30 AM EDT Narrative Authorizing ProviderResult TypeResult StatusBrchuckie S Obryi DOLAB BLOOD ORDERABLESFinal ResultPerforming OrganizationAddressCity/State/ZIP CodePhone Number [facility] [address] [place] [address], [place] * Liver panel (08/31/2025 11:20 AM EDT)ComponentValueRef RangeTest Method Analysis TimePerformed AtPathologist SignatureTOTAL PROTEIN7.56.0 - 8.0 g/dL 08/31/2025 1:23 PM EDTPACMC HEALTHCARE SYSTEMALBUMIN4.63.2 - 5.3 g/dL08/31/2025 1:23 PM [facility]ITALBILIRUBIN,TOTAL 0.80.3 - 1.2 mg/dL08/31/2025 1:23 PM [facility] ALKALINE AVAZSTXLBIW5178 - 130 U/L1 1:23 PM [facility]ITALAST16<=41 U/L1 1:23 PM [facility]ALT17<=31 U/L1 1:23 PM [facility] BILIRUBIN,DIRECT0.1<=0.4 mg/dL08/31/2025 1:23 PM [facility] DAYTONpecimen (Source)Anatomical Location / LateralityCollection Method / VolumeCollection TimeReceived TimeBloodVenous blood / UnknownVenipuncture / Zbzgvay7808/31/2025 11:20 AM EDT1 11:30 AM EDT Narrative Authorizing ProviderResult TypeResult StatusKeshav Wynn Obthierryi DOLAB BLOOD ORDERABLESFinal ResultPerforming OrganizationAddressCity/State/ZIP CodePhone Number [address] [place] [address], [place] * (ABNORMAL) Basic Metabolic Panel (08/31/2025 11:20 AM EDT)ComponentValueRef RangeTest MethodAnalysis TimePerformed AtPathologist UnsskbglyJNOBRZ007395 - 146 mmol/L1 12:07 PM [facility]ITALPOTASSIUM 3.4(L)3.5 - 5.0 mmol/L1 12:07 PM [facility]ITALCHLORIDE9998 - 109 mmol/L1 12:07 PM [facility]ITALCARBON QEAQAMB1848 - 32 mmol/L1 12:07 PM EDT [facility]AN[facility] CAR245 - 15 mmol/L1 12:07 PM [facility]ITALBLOOD UREA XSMWMZYZ24 - 23 mg/dL 08/31/2025 12:07 PM [facility]ITALCREATININE0.580.40 - 1.00 mg/dL08/31/2025 12:07 PM [facility]PITALComment: METHOD TRACEABLE TO IDMS ZBPGYLBMRKNJVNB6077 - 99 mg/dL08/31/2025 12:07 PM EDT [facility]ITALCALCIUM9.28.5 - 10.5 mg/dL08/31/2025 12:07 PM [facility]PITALEGFR Non-Race Dependent>90>=60 ml/min/1.73sq.m1 12:07 PM [facility] Comment: eGFR not reported due to non-numeric value for Creatinine. Reported eGFR is based on the CKD-EPI 2020 equation that does not use a race coefficient. Specimen (Source)Anatomical Location / LateralityCollection Method / Volume Collection TimeReceived TimeBloodVenous blood / UnknownVenipuncture / Unknown 08/31/2025 11:20 AM EDT1 11:30 AM EDT Narrative Authorizing ProviderResult TypeResult StatusBrchuckie SRINIVASAN BLOOD ORDERABLESFinal ResultPerforming OrganizationAddressCity/State/ZIP CodePhone Number [facility] [address] [place] [address], [place] * (ABNORMAL) POCT , urine (08/31/2025 10:56 AM EDT)ComponentValueRef RangeTest MethodAnalysis TimePerformed AtPathologist SignaturePOC Urine PregnancyPositive(A)Negative, Zgoauwahhchuk26/15/2025 10:58 AM [facility] DAYTONpecimen (Source)Anatomical Location / Laterality Collection Method / VolumeCollection TimeReceived CldbSfexq56/15/2025 10:56 AM EDT1 10:58 AM EDT Narrative Authorizing ProviderResult TypeResult StatusBrian Kingsley Obrycki DOPOINT OF CARE TEST ORDERABLESFinal ResultPerforming OrganizationAddressCity/State/ZIP CodePhone Number [facility] [address] [place] [address], [place] * (ABNORMAL) POCT Nursing Urine Macroscopic UA (08/31/2025 10:55 AM EDT) ComponentValueRef RangeTest MethodAnalysis TimePerformed AtPathologist [facility] Urine Specific Gravity1.0101.010, 1.015, 1.020, 1.7204408/31/2025 10:56 AM [facility] Urine Leukocyte Esterase MzetxdqyElgebjrz05/15/2025 10:56 AM [facility] Urine AwqwrgzCukyxcoyFchyekgs83/15/2025 10:56 AM [facility] Urine pH7.05.0, 6.0, 6.5, 7.0, 7.5, 8.0, 8.5, 5. 10:56 AM [facility] Urine ProteinNegativeNegative 08/31/2025 10:56 AM [facility] Urine Glucose CbyfktvvNgzhfrfv67/15/2025 10:56 AM [facility] Urine Bbnnruf66 mg/dL(A)Mtrjqimy98/15/2025 10:56 AM [facility] Urine Urobilinogen0.2 E.U./dL08/31/2025 10:56 AM EDT [facility] Urine BilirubinNegativeNegative 08/31/2025 10:56 AM [facility] Urine Blood/HGB Trace(A)Ywquwyqq55/15/2025 10:56 AM [facility] Specimen (Source)Anatomical Location / LateralityCollection Method / Volume Collection TimeReceived UfdlAdhud75/15/2025 10:55 AM EDT1 10:56 AM EDT Narrative Authorizing ProviderResult TypeResult StatusBrian S Obrycki DOPOINT OF CARE TEST ORDERABLESFinal ResultPerforming OrganizationAddressCity/State/ZIP CodePhone Number [address] [place] [address], [place] * Extra Urine [place] (08/31/2025 10:53 AM EDT)ComponentValueRef RangeTest Method Analysis TimePerformed AtPathologist SignatureExtra TubeAuto Resulted 08/31/2025 12:02 PM [facility] DAYTONpeccritical [facility] hospitaln (Source) Anatomical Location / LateralityCollection Method / VolumeCollection Time Received TimeUrineUrine specimen collection, clean catch / Iljhdom8608/31/2025 10:53 AM EDT1 11:31 AM EDT Narrative Authorizing ProviderResult TypeResult StatusBrian S Obrycki DOURINE ORDERABLES Final ResultPerforming OrganizationAddressCity/State/ZIP CodePhone Number [address] [place] [address], [place] * Extra Urine Culture (08/31/2025 10:53 AM EDT)ComponentValueRef RangeTest MethodAnalysis TimePerformed AtPathologist SignatureExtra TubeAuto Resulted 08/31/2025 12:02 PM [facility] (Source) Anatomical Location / LateralityCollection Method / VolumeCollection Time Received TimeUrineUrine specimen collection, clean catch / Oktwwfc5508/31/2025 10:53 AM EDT1 11:31 AM EDT Narrative Authorizing ProviderResult TypeResult StatusBrian S Obrycki DOURINE ORDERABLES Final ResultPerforming OrganizationAddressCity/State/ZIP CodePhone Number [address] [place] [address], [place] * Extra Urine (08/31/2025 10:53 AM EDT)ComponentValueRef RangeTest Method Analysis TimePerformed AtPathologist SignatureExtra TubeAuto Resulted 08/31/2025 12:02 PM EDTPROMEDICA SUTTER SOLANO MEDICAL CENTERpecimen (Source) Anatomical Location / LateralityCollection Method / VolumeCollection Time Received TimeUrineUrine specimen collection, clean catch / Jodgdue0008/31/2025 10:53 AM EDT1 11:30 AM EDT Narrative Authorizing ProviderResult TypeResult StatusBrian S Obrycki DOURINE ORDERABLES Final ResultPerforming OrganizationAddressCity/State/ZIP CodePhone Number [facility] [address] [place] [address], from Last 3 Months Insurance * Guarantor: Neo Rojas TypeRelation to PatientDate of PhoneBilling PimjzjeMhgdaXmxq[address] [place] [phone] Care Teams Team MemberRelationshipSpecialtyStart DateEnd Date No Pcp, [place] [address] [facility]/24
--- OUTSIDE RECORDS SUMMARY | 2025-09-28 13:14 | XMS_ITS | Clinical Summary ---
Author Organization [facility] Address [address] [place] [address] Care Team Providers Care Nurse Paralegal Name Role Phone Unallocated, Noms Provider MD Primary Care Provi manasa Allergies Active AllergyReactionsCriticalityNoted FmdfFxrcchsbZpoicokzoTtiaofqaw17/14/2018 Celery FmhGgsvq07/09/3997AjxhmkbgpPeqwi40/09/2017LamotrigineRash,UnknownLow 04/01/2018 Medications MedicationSigDispense QuantityRefillsLast FilledStart DateEnd DateStatus 28-0.8 MG tablet 1 (one) time each day at the same time.Active ibuprofen 800 MG tablet Take 800 mg by mouth every 8 (eight) hours if needed. Discontinued(Therapy completed) Encounters DateTypeDepartmentCare JistPjzlqfyntxu40/11/2025[place] [address] Kusum Eisenberg MA 09/13/2025linisync Result Encounter [facility] External Department Unsolicited Teodoro Bonner DO 09/12/2025 11:30 AM [place]TOff[place] [address] Teodoro Bonner DO Encounter for consultation; in first dzjeuuucm67/27/2025[place] [address] Sarah KnoxanCHICA 09/12/2025amboo flowsheet [facility] [address] [place] [address] Teodoro Bonner DO 08/31/2025Telephone [facility] [address] [place] [address] Teodoro Bonner DO from Last 3 Months Family History Medical HistoryRelationNameCommentsADD / ADHDMotherAnxiety disorderMotherCancer MotherDepressionMotherDiabetesMotherRelationNameStatusCommentsFatherAliveMother Alive Social History Tobacco UseTypesPacks/DayYears UsedDateSmoking Tobacco: Every DayCigarettes Smokeless Tobacco: Never Tobacco Cessation:Ready to Q uit: Not Asked; Counseling Given: Not Answered Comments:6-10 cigarettes/day Alcohol UseStandard Drinks/WeekCommentsNot Currently0 (1 standard drink = 0.6 oz pure alcohol)CommentsNoSex and Gender InformationValueDate RecordedSex Assigned at BirthNot on fileLegal GplMjegcp67/15/2023 8:22 PM EDTGender Identity Not on fileSexual OrientationNot on file Last Filed Vital Signs Vital SignReadingTime TakenCommentsBlood Zxsylyog66/6209/12/2025 11:38 AM EDT Pulse--Temperature--Respiratory Rate--Oxygen Saturation--Inhaled Oxygen Concentration--Sgxftp98.2 kg (101 lb 12.8 oz)09/12/2025 11:38 AM ALLFfspja221.8 cm (4' 9 )01/13/2023 12:00 PM ESTBody Mass Index22.03001/13/2023 12:00 PM EST Plan of Treatment Health MaintenanceDue DateLast DoneCommentsPneumococcal Vaccine: Pediatrics (0 to 5 Years) and At-Risk Patients (6 to 64 Years) (1 of 2 - PCV)2017COVID- 19 Vaccine ( - season)2025Influenza Vaccine (#1)2025 Procedures Procedure NamePriorityDate/TimeAssociated DiagnosisCommentsTBH PREG QUANT HCG Spdowcj58/ 1:18 PM EDT from Last 3 Months Results * [facility] PREG QUANT HCG (09/13/2025 1:18 PM EDT)ComponentValueRef RangeTest Method Analysis TimePerformed AtPathologist SignatureHCG UDURICWIVZKS713cWI/mLTBH Comment: 5-50 ? 0.2-1 WEEK 50-500 ? 1-2 WEEKS 100-5,000 ?2-3 WEEKS 500-10,000 ? 3-4 WEEKS 1,000-50,000 ?? 4-5 WEEKS 10,000-100,000 5-6 WEEKS 15,000-200,000 6-8 WEEKS 10,000-100,000 2-3 MONTHS Specimen (Source)Anatomical Location / LateralityCollection Method / Volume Collection TimeReceived Time09/13/2025 1:18 PM EDT1 1:19 PM EDT Narrative [facility] - 09/13/2025 3:44 PM EDT Authorizing ProviderResult TypeResult StatusCorey Kailey DOCLINISYNCFinal Result Performing OrganizationAddressCity/State/ZIP CodePhone Number [facility] from Last 3 Months Insurance Care Teams Team MemberRelationshipSpecialtyStart DateEnd Date Unallocated, Noms Emili, [address] [place], [place] [id number] [facility]09/03/23
--- OUTSIDE RECORDS SUMMARY | 2025-09-28 13:14 | XMS_ITS | Encounter Summary ---
Author Organization [facility] Address [address] [place] [address] Care Team Providers Care Gift Basket Packer Name Role Phone Unallocated, Noms Provider Primary Care Provi manasa Encounter Details DateTypeDepartmentCare Team (Latest Contact Info)Zdwyzclngbz48/11/2025Telephone [facility] [address] [place] [address] [place] [address] Kusum Eisenberg MA Social History Tobacco UseTypesPacks/DayYears UsedDateSmoking Tobacco: Every DayCigarettes Smokeless Tobacco: Never Comments:6-10 cigarettes/day Alcohol UseStandard Drinks/WeekCommentsNot Currently0 (1 standard drink = 0.6 oz pure alcohol)CommentsNoSex and Gender InformationValueDate RecordedSex Assigned at BirthNot on fileLegal ChdBbsahv74/15/2023 8:22 PM EDTGender Identity Not on fileSexual OrientationNot on filedocumented as of this encounter Miscellaneous Notes * Telephone Encounter - Kusum Eisenberg MA - 09/27/2025 10:31 AM EST Patient called requesting when her next blood draw would be. Advised patient to complete the blood draw today if possible. Patient stated she is unable to do so today but will attempt tomorrow. Patient denies any active bleeding and reports bleeding ceased around 09/13/2025. documented in this encounter Plan of Treatment Not on file documented as of this encounter Visit Diagnoses Not on filedocumented in this encounter Care Teams Team MemberRelationshipSpecialtyStart DateEnd Date Unallocated, Noms Provider, [address] [place] [address] PCP - Hrxmwak69/18/23documented as of this encounter
== END 2025-09-28 13:12 | disposition home or self-care (01) ==
LOC: LAB 13:12
PROVIDERS: Visit Provider Obstetrics & Gynecology
DX: Z33.2 Encounter for elective termination of pregnancy (principal); Z71.9 Counseling, unspecified
CPT/HCPCS: 36415; 84702